=== PATIENT | female | born 1955 | race Caucasian/White ===

== ENCOUNTER → 2018-09-02 | Outpatient (CLI) | payer BC ==
--- NOTE | 2018-09-02 09:19 | MM ---
Reason for exam: additional evaluation requested from prior study. Last mammogram was performed 3 years and 2 months ago. History: Patient is postmenopausal. Family history of breast cancer in maternal cousin at age 40. Benign ultrasound-guided core biopsy of the left breast, June 23, 2003. 2 benign cyst aspirations of the left breast. Physical Findings: Nurse did not find any significant physical abnormalities on exam. MG Diagnostic Mammo w CAD KELLY Bilateral CC and MLO view(s) were taken. Prior study comparison: June 27, 2015, bilateral MG 3d diag mammo w/cad KELLY. December 22, 2014, left breast MG diagnostic mammo LT w CAD. The breast tissue is heterogeneously dense. This may lower the sensitivity of mammography. Benign calcifications in the right breast. These results were verbally communicated with the patient and result sheet given to the patient on 09/02/18. ASSESSMENT: Benign, BI-RAD 2 RECOMMENDATION: Routine screening mammogram of both breasts in 1 year.
== END | disposition home or self-care (01) ==
LOC: RADMAMWWP 08:07
PROVIDERS: ATTEND Internal Medicine
DX: N63.20 Unspecified lump in the left breast, unspecified quadrant (principal)
CPT/HCPCS: 77066

== ENCOUNTER → 2018-10-27 | Outpatient (CLI) | payer BC ==
[2018-10-27 22:01] LABS: Hemoglobin A1C 7.3 % (4.0-6.0)
== END | disposition home or self-care (01) ==
LOC: LABWHC1 11:21
PROVIDERS: ATTEND Internal Medicine
DX: E11.9 Type 2 diabetes mellitus without complications (principal)
CPT/HCPCS: 36415; 82947; 83036

== ENCOUNTER → 2021-01-25 | Outpatient (CLI) | payer BC ==
[2021-01-25 16:12] LABS: HCT 39.1 % (34.0-46.0); HGB 13.2 gm/dL (11.4-16.0); MCH 28.2 pg (25.0-35.0); MCHC 33.7 g/dL (31.0-37.0); MCV 83.6 fL (80.0-100.0); Mean Platelet Volume 7.3; Platelet Count 307 k/uL (150-450); RBC 4.68 m/uL (3.80-5.40); RDW 13.9 % (11.5-15.5); WBC 7.7 k/uL (3.8-10.6)
[2021-01-25 16:20] LABS: Potassium 4.1 mmol/L (3.5-5.1)
== END | disposition home or self-care (01) ==
LOC: LABPAT 15:47
PROVIDERS: ATTEND Surgery
DX: Z01.818 Encounter for other preprocedural examination (principal); C18.9 Malignant neoplasm of colon, unspecified; R94.31 Abnormal electrocardiogram [ECG] [EKG]
CPT/HCPCS: 36415; 80051; 85027; 86850; 86900; 86901; 93005

== ENCOUNTER 2021-01-31 08:21 | Inpatient (IN) | payer BC ==
[2021-01-29 11:58] VITALS: BMI 34.7
[~2021-01-31 08:21] MED LIST: ACETAMINOPHEN TAB 500 MG TAB PO PRN; DEXAMETHASONE SOD PHOSPHATE 4 MG/ML 1 ML VIAL IV ONE; HEPARIN SODIUM,PORCINE/PF 5,000 UNIT/0.5 ML SYRINGE SQ PRN; HYDROmorphone 0.5 MG/0.5 ML SYRINGE IVP PRN; LIDOCAINE 1% (10MG/ML) FOR IV START INTRADERMA PRN; ONDANSETRON 4 MG/2 ML VIAL IVP ONE; SCOPOLAMINE 1.5MG/72HR PATCH TRANSDERM ONE; metroNIDAZOLE-NS PMX 500 MG in SALINE 1 100ML.BAG IVPB PRN
--- NOTE | 2021-01-31 09:06 | P.GSHP ---
History of Present Illness H&P Date: 01/31/21 Chief Complaint: Colon cancer This 65-year-old female who was recently diagnosed with synchronous colon cancer. Patient is a cancer of the right colon and left colon. She presents today for subtotal colectomy. Patient aware the risks of surgery including bleeding, wound infection and possible colostomy Past Medical History Past Medical History: Cancer, Diabetes Mellitus, Eye Disorder, Hypertension Additional Past Medical History / Comment(s): colon cancer. glaucoma History of Any Multi-Drug Resistant Organisms: None Reported Past Surgical History: Cholecystectomy Smoking Status: Never smoker - Past Family History Father Family Medical History: Cancer Additional Family Medical History / Comment(s): prostate cancer x. colon cancer Medications and Allergies Home Medications Medication Instructions Recorded Confirmed Type Bisoprolol/Hydrochlorothiazide 1 tab PO DAILY 01/29/21 01/31/21 History [Bisoprolol/Hydrochlorothiazide 2.5-6.25 mg] Dorzolamide/Timolol/Pf 1 drop BOTH EYES BID 01/29/21 01/31/21 History [Dorzolamide 2%-Timolol 0.5%] metFORMIN HCL [Glucophage] 1,000 mg PO BID 01/29/21 01/31/21 History Allergies Allergy/AdvReac Type Severity Reaction Status Date / Time No Known Allergies Allergy Verified 01/31/21 08:55 Surgical - Exam Vital Signs Temp Pulse Resp BP Pulse Ox 97.1 F L 82 16 172/84 97 01/31/21 08:54 01/31/21 08:54 01/31/21 08:54 01/31/21 08:54 01/31/21 08:54 - General well developed, well nourished, no distress - Eyes PERRL - ENT normal pinna - Neck no masses - Respiratory normal expansion - Cardiovascular Rhythm: regular - Abdomen Abdomen: soft, non tender Assessment and Plan Assessment: History of synchronous colon cancer. Patient will undergo subtotal colectomy today.
[2021-01-31 09:27] LABS: Glucose,Whole Blood 292 mg/dL (75-99)
[2021-01-31] MEDS: LACTATED RINGERS 1,000 ML IV SCH (09:31)
[2021-01-31] MEDS ORDERED: ALVIMOPAN 12 MG CAPSULE PO ONE (09:32)
[2021-01-31] MEDS ORDERED: INSULIN ASPART (NovoLOG) 100 UNIT/ML VIAL SQ ONE (09:36)
[2021-01-31] MEDS ORDERED: MIDAZOLAM 2 MG/2 ML VIAL IVP ONE (09:46)
[2021-01-31] MEDS ORDERED: NALOXONE 0.4 MG/ML 1 ML VIAL IV PRN (10:00)
--- NOTE | 2021-01-31 10:03 | P.ANPRN ---
Procedure Note - Anesthesia - Epidural/Spinal Epidural Time Out Performed: Yes Date of Procedure: 01/31/21 Procedure Start Time: 09:45 Procedure Stop Time: 10:01 Location of Patient: PreOp Indication: Acute Post-Operative Pain Sedation Type: Sedate with meaningful contact maintained Preparation: Sterile Dressing Position: Sitting Catheter: Indwelling Needle Guage: 18 Injectate: Test Dose Lidocaine1.5% w/1:200,000 epi (3cc without response) Blood Aspirated: No Pain Paresthesia on Injection Noted: No Events: Uneventful and Well Tolerated
[2021-01-31] MEDS ORDERED: HYDROmorphone (PF) 1 MG/ML ONE (10:22)
[2021-01-31] MEDS ORDERED: MIDAZOLAM 2 MG/2 ML VIAL ONE (10:22)
[2021-01-31] MEDS ORDERED: PHENYLEPHRINE-0.9% NACL SYG 1,000 MCG/10 ML SYRINGE ONE (10:22)
[2021-01-31] MEDS ORDERED: SUCCINYLCHOLINE CHLORIDE 100 MG/5 ML SYR IV ONE (10:22)
[2021-01-31] MEDS ORDERED: VECURONIUM 10 MG VIAL IV ONE (10:22)
[2021-01-31] MEDS ORDERED: LIDOCAINE 1% INJ 10MG/ML (20 ML MDV) ONE (10:22)
[2021-01-31] MEDS ORDERED: PROPOFOL 10 MG/ML 20 ML VIAL IV ONE (10:22)
[2021-01-31] MEDS ORDERED: fentaNYL (PF) 50 MCG/ML 2 ML AMP ONE (10:22)
[2021-01-31] MEDS ORDERED: NEOSTIGMINE 1 MG/ML 10 ML VIAL ONE (10:22)
[2021-01-31] MEDS ORDERED: GLYCOPYRROLATE 0.2 MG/ML 2 ML VIAL ONE (10:22)
[2021-01-31] MEDS ORDERED: LACTATED RINGERS 1,000 ML IV ONE (11:37)
[2021-01-31] MEDS ORDERED: METOCLOPRAMIDE 5 MG/ML 2 ML VIAL IVP PRN (12:34)
--- NOTE | 2021-01-31 12:34 | P.OP ---
Date of Procedure: 01/31/21 Preoperative Diagnosis: Synchronous colon cancer of right and left colon Postoperative Diagnosis: Synchronous colon cancer of right and left colon Procedure(s) Performed: Subtotal colectomy Partial omentectomy Anesthesia: CARYN Surgeon: Mac Kohler Estimated Blood Loss (ml): 150 Pathology: none sent (colon) Condition: stable Disposition: PACU Description of Procedure: Patient's placed the operative table in supine position. She received a general injury to position. Her abdomen was prepped and draped usual sterile fashion. A midline skin incision was made. The Bookwalter tract with wound. There were adhesions in the cavity. The adhesions were quite significant. Approximate 35 minutes operative time used to lyse adhesions. At this point the terminal ileum was dissected free and then transected with a GI stapler. The right colon was mobilized by dividing the white line of Toldt's. And then the hepatic flexure was mobilized and then the splenic flexure was mobilized and then the left colon was mobilized. The area of the rectosigmoid was then transected with the MAIKEL stapler. And then using the Enseal device the mesentery the bowel was divided. The specimen was then sent to pathology. This point the abdomen was irrigated. There is no bleeding seen. A [id number] functional end-to-end staple S was then created between the terminal ileum and the rectosigmoid area. This was grade using the MAIKEL and TA stapler. 30 just sutures using a crotch stitch. The abdomen was irrigated is no bleeding seen. The fascia closed with looped #1 PDS suture. Skin was closed cheyanne. The patient tolerated the procedure well and sent to recovery room in stable condition.
[2021-01-31] MEDS: ROPIVACAINE 250 MG, HYDROMORPHONE (PF) 5 MG in SODIUM CHLORIDE 0.9% 200 ML EPIDURAL PRN ×2 (12:35→13:16)
[2021-01-31 12:53] LABS: Glucose,Whole Blood 244 mg/dL (75-99)
[2021-01-31] MEDS ORDERED: D5-0.45% NACL WITH KCL 20MEQ/L 1,000 ML IV SCH (13:30)
[2021-01-31] MEDS: metFORMIN 500 MG TAB PO SCH (17:00)
[2021-01-31] MEDS: HEPARIN SODIUM,PORCINE/PF 5,000 UNIT/0.5 ML SYRINGE SQ SCH ×2 (17:08→19:54)
[2021-01-31] MEDS: SODIUM CHLORIDE 0.9% 1,000 ML IV SCH (18:39)
[2021-01-31 19:44] LABS: Glucose,Whole Blood 304 mg/dL (75-99)
[2021-01-31] MEDS: INSULIN ASPART (NovoLOG) 100 UNIT/ML VIAL SQ SCH (19:54)
[2021-01-31] MEDS: DORZOLAMIDE-TIMOLOL 2.23%/0.68 10ML BTL BOTH EYES SCH (19:55)
--- NOTE | 2021-01-31 23:25 | CONS ---
CONSULTATION REASON FOR CONSULTATION: Advice regarding diabetes and other medical issues, requested by Dr. Kohler. HISTORY OF PRESENT ILLNESS: This 65-year-old woman with a past medical history of diabetes mellitus, history of hypertension, history of and glaucoma, being followed by Dr. Catherine in the outpatient setting, underwent subtotal colectomy and partial omentectomy by Dr. Kohler for synchronous colon cancer of the right and left colon. The patient tolerated the procedure well. There is no history of any fever, rigors or chills. No history of headache, loss of consciousness, seizures at this time. PAST MEDICAL HISTORY: History of diabetes mellitus, hypertension, history of colon cancer. MEDICATIONS: Glucophage, bisopryl, hydrochlorothiazide. Doses are reviewed. ALLERGIES: NONE. FAMILY HISTORY: History of prostate cancer and colon cancer in the family. SOCIAL HISTORY: No history of smoking. Occasional alcohol intake. REVIEW OF SYSTEMS: ENT: No diminished hearing. No diminished vision. CARDIOVASCULAR SYSTEM: No angina, palpitations. RESPIRATORY SYSTEM: No cough, hemoptysis, GI: As mentioned earlier. : No dysuria. NERVOUS SYSTEM: No numbness, weakness. ALLERGY/IMMUNOLOGY: No asthma or hay fever. MUSCULOSKELETAL: As mentioned earlier. HEMATOLOGY/ONCOLOGY: As mentioned earlier. ENDOCRINE: As mentioned earlier. CONSTITUTIONAL: As mentioned earlier. DERMATOLOGY: Negative. RHEUMATOLOGY: Negative. PSYCHIATRY: As mentioned earlier. PHYSICAL EXAMINATION: Patient alert and times 3. Pulse is 61, blood pressure 136/66, respirations 16, temperature 96.9, pulse ox 98% on 2 L. HEENT: Conjunctivae normal. NECK: No jugular venous distention. CARDIOVASCULAR: S1, S2 muffled. RESPIRATION: Breath sounds diminished at the bases. A few rhonchi. No crackles. ABDOMEN: Soft. Status post surgery. LEGS: No edema. No swelling. NERVOUS SYSTEM: Higher functions as mentioned earlier. Moves all 4 limbs. No focal motor or sensory deficit. LYMPHATICS: No lymph node palpable in neck, axillae or groin. SKIN: No ulcer, rash, bleeding. JOINTS: No active deforming arthropathy. LABS: Glucose 292 and 244. The preoperative labs are seen. Normal CBC. Chemistries noted. ASSESSMENT: 1. Status post subtotal colectomy and partial omentectomy for synchronous colon cancer of the right and left colon. 2. Diabetes mellitus, type 2. 3. Glaucoma. 4. Hypertension. 5. History of cholecystectomy. 6. Obesity with body mass index of 34.4. 7. FULL CODE. RECOMMENDATIONS AND DISCUSSION: In this 65-year-old woman who presented with multiple complex medical issues, at this time I recommend to continue the current management, continue symptomatic treatment. Otherwise, change the IV fluids to 0.9. Accu-Cheks before meals and at bedtime. Resume the home medications. DVT prophylaxis. Proton pump inhibitors. Will follow the patient closely. Patient may be asked to follow up with Dr. Catherine closely after discharge. Thank you, Dr. Kohler, for letting us participate in the care of this patient. MMODL / IJN: [id number] / LUCINA
[2021-02-01] MEDS: LACTATED RINGERS 1,000 ML IV SCH (05:13)
--- NOTE | 2021-02-01 06:21 | P.PN ---
Progress Note - Text Progress Note Date: 02/01/21 65-year-old female status post a subtotal colectomy postop day #1 epidural catheter day #2. Patient has no complaints. She has a Jeffrey catheter in place. Current solution is running at 6 mL an hour. She did have some right thigh numbness yesterday that has subsided. No lower extremity weakness. Back and epidural catheter look appropriate clean dry and intact. VAS ranges from a 0-6 out of 10 severity depending on activity. Plan: Continue epidural catheter at current settings, endorse ambulation, okay to remove Jeffrey catheter. Patient is on subcu heparin 5000 units every 8 hours please contact anesthesia before removing epidural catheter.
[2021-02-01 07:10] LABS: Glucose,Whole Blood 218 mg/dL (75-99)
[2021-02-01] MEDS: INSULIN ASPART (NovoLOG) 100 UNIT/ML VIAL SQ SCH ×4 (07:12→21:22)
[2021-02-01] MEDS: HEPARIN SODIUM,PORCINE/PF 5,000 UNIT/0.5 ML SYRINGE SQ SCH ×3 (07:13→21:22)
[2021-02-01] MEDS: metFORMIN 500 MG TAB PO SCH ×2 (07:13→17:17)
[2021-02-01 07:44] LABS: Basophils # (A) 0.1 k/uL (0-0.2); Basophils % (A) 1 %; Eosinophils % (A) 0 %; HCT 35.3 % (34.0-46.0); Lymphocytes # (A) 1.8 k/uL (1.0-4.8); Lymphocytes % (A) 20 %; MCH 28.9 pg (25.0-35.0); MCHC 34.1 g/dL (31.0-37.0); MCV 84.8 fL (80.0-100.0); Mean Platelet Volume 7.7; Monocytes # (A) 0.8 k/uL (0-1.0); Monocytes % (A) 9 %; Neutrophils # (A) 6.4 k/uL (1.3-7.7); Neutrophils % (A) 69 %; Platelet Count 273 k/uL (150-450); RBC 4.16 m/uL (3.80-5.40); RDW 14.2 % (11.5-15.5); WBC 9.2 k/uL (3.8-10.6)
[2021-02-01 07:55] LABS: African American GFR (CKD) >90 (>60 ml/min/1.73 sqM); Anion Gap 7 mmol/L; Blood Urea Nitrogen 7 mg/dL (7-17); Calcium 8.1 mg/dL (8.4-10.2); Carbon Dioxide 26 mmol/L (22-30); Chloride 101 mmol/L (98-107); Glucose 208 mg/dL (74-99); Non-African American GFR(CKD) >90 (>60 ml/min/1.73 sqM); Potassium 4.1 mmol/L (3.5-5.1); Sodium 134 mmol/L (137-145)
[2021-02-01] MEDS: DORZOLAMIDE-TIMOLOL 2.23%/0.68 10ML BTL BOTH EYES SCH ×2 (08:26→21:24)
[2021-02-01] MEDS: BISOPROLOL-HCTZ 2.5-6.25 MG 1 EACH TAB PO SCH (08:26)
[2021-02-01] MEDS: SODIUM CHLORIDE 0.9% 1,000 ML IV SCH ×2 (08:54→16:48)
[2021-02-01 11:42] LABS: Glucose,Whole Blood 239 mg/dL (75-99)
--- NOTE | 2021-02-01 13:56 | P.PN ---
Subjective Progress Note Date: 02/01/21 CHIEF COMPLAINT: Synchronous colon cancer of right and left colon HISTORY OF PRESENT ILLNESS: Patient is status post Subtotal colectomy and Partial omentectomy. Postop day #1. She has epidural in place. Her pain is controlled. She denies any nausea or vomiting. No flatus or BM. Afebrile. WBC is 9.2 hemoglobin is 12 PHYSICAL EXAM: VITAL SIGNS: Reviewed. GENERAL: Well-developed in no acute distress. HEENT: No sclera icterus. Extraocular movements grossly intact. Moist buccal mucosa. Head is atraumatic, normocephalic. ABDOMEN: Soft. Nondistended. Incisional dressing clean dry and intact NEUROLOGIC: Alert and oriented. Cranial nerves II through XII grossly intact. ASSESSMENT: 1. Synchronous colon cancer of right and left colon status post Subtotal colectomy and Partial omentectomy PLAN: -Continue epidural for pain control -Continue Jeffrey catheter -Continue clear liquid diet -Encouraged patient to increase activity and ambulate -Encouraged patient to use incentive spirometer -DVT prophylaxis subcu heparin and GI prophylaxis protonix Physician Film Crew Member note has been reviewed by physician. Signing provider agrees with the documented findings, assessment, and plan of care. Objective - Vital Signs Vital signs: Vital Signs Temp 98.4 F 02/01/21 07:32 Pulse 92 02/01/21 07:32 Resp 18 02/01/21 07:32 BP 112/74 02/01/21 07:32 Pulse Ox 93 L 02/01/21 07:32 Intake & Output 01/31/21 02/01/21 02/01/21 18:59 06:59 18:59 Intake Total 1854.8 1500 Output Total 390 400 Balance 1464.8 1500 -400 Weight 91 kg Intake: IV 1854.8 Intake, IV Titration 1500 Amount D5-0.45% NaCl with KCl 1500 20Meq/l 1,000 ml @ 125 mls/hr IV .Q8H [facility] Rx#: [id number] Output: Urine 240 400 Estimated Blood Loss 150 Other: Voiding Method Indwelling Catheter Indwelling Catheter - Labs CBC & Chem 7: 02/01/21 06:51 02/01/21 06:51 Labs: Abnormal Lab Results - Last 24 Hours (Table) 01/31/21 02/01/21 02/01/21 Range/Units 19:42 06:51 07:09 Sodium 134 L (137-145) mmol/L Glucose 208 H (74-99) mg/dL POC Glucose (mg/dL) 304 H 218 H (75-99) mg/dL Calcium 8.1 L (8.4-10.2) mg/dL 02/01/21 Range/Units 11:41 Sodium (137-145) mmol/L Glucose (74-99) mg/dL POC Glucose (mg/dL) 239 H (75-99) mg/dL Calcium (8.4-10.2) mg/dL
--- NOTE | 2021-02-01 14:03 | PN ---
PROGRESS NOTE DATE OF SERVICE: 02/01/2021 This 65-year-old woman was admitted after subtotal colectomy and partial omentectomy for synchronized colon cancer is improving significantly. No chest pain. No palpitations. No fever. PHYSICAL EXAMINATION: Alert and oriented times two. Pulse 92, blood pressure 112/74, respiration 18, temperature 98.2, pulse ox 98% on 2 L. HEENT: Conjunctivae normal. Neck: No JVD. Cardiovascular: S1, S2 muffled. Respiration: Breath sounds diminished in the bases. A few rhonchi. No crackles. Abdomen: Soft, status post surgery. Nervous system: No focal deficits. LABS: Accu-Cheks 289, 239. Calcium is 8.1. ASSESSMENT: 1. Status post subtotal colectomy for partial omentectomy for synchronized colon cancer of the right and left colon. 2. Diabetes mellitus type 2. 3. Mild hyponatremia. 4. Glaucoma. 5. Hypertension. 6. History of cholecystectomy. 7. Obesity with body mass of 34.4. 8. FULL CODE. RECOMMENDATIONS AND DISCUSSION: I recommend to continue current medications, management and symptomatic treatment. The patient's NG tube has been removed. The patient is currently on clear liquid diet. I recommend to continue the metformin at this time and NovoLog scale also. I would recommend hemoglobin A1c and continue to monitor. Further recommendations to follow. MMODL / IJN: [id number] /
[2021-02-01] MEDS: PANTOPRAZOLE 40 MG TABLET PO SCH (16:24)
[2021-02-01 16:33] LABS: Glucose,Whole Blood 162 mg/dL (75-99)
[2021-02-01] MEDS: ROPIVACAINE 250 MG, HYDROMORPHONE (PF) 5 MG in SODIUM CHLORIDE 0.9% 200 ML EPIDURAL PRN (16:42)
[2021-02-01 20:37] LABS: Glucose,Whole Blood 167 mg/dL (75-99)
[2021-02-01 23:16] LABS: Hemoglobin A1C 6.7 % (4.0-6.0)
[2021-02-02] MEDS: LACTATED RINGERS 1,000 ML IV SCH (05:34)
[2021-02-02 06:50] LABS: Glucose,Whole Blood 208 mg/dL (75-99)
--- NOTE | 2021-02-02 07:36 | P.PN ---
Progress Note - Text 02/02/21 702am 65-year-old female status post subtotal colectomy by Dr. Reyes. Postop day #2 with epidural solution running at 5 mL an hour with a VAS of 4. Dressing clean dry and intact. No complains and motor or sensory deficits. Patient was able to walk to the bathroom yesterday. Plan to continue epidural infusion and DC the catheter in the morning. Hold the morning dose of subcu heparin
[2021-02-02] MEDS: PANTOPRAZOLE 40 MG TABLET PO SCH (09:28)
[2021-02-02] MEDS: metFORMIN 500 MG TAB PO SCH ×2 (09:28→17:02)
[2021-02-02] MEDS: DORZOLAMIDE-TIMOLOL 2.23%/0.68 10ML BTL BOTH EYES SCH ×2 (09:28→20:57)
[2021-02-02] MEDS: HEPARIN SODIUM,PORCINE/PF 5,000 UNIT/0.5 ML SYRINGE SQ SCH ×2 (09:29→17:02)
[2021-02-02] MEDS: BISOPROLOL-HCTZ 2.5-6.25 MG 1 EACH TAB PO SCH (09:29)
[2021-02-02] MEDS: INSULIN ASPART (NovoLOG) 100 UNIT/ML VIAL SQ SCH ×4 (09:29→20:49)
[2021-02-02] MEDS: SODIUM CHLORIDE 0.9% 1,000 ML IV SCH (09:37)
[2021-02-02 11:39] LABS: Glucose,Whole Blood 247 mg/dL (75-99)
[2021-02-02] MEDS: ONDANSETRON 4 MG/2 ML VIAL IVP PRN ×2 (12:02→23:12)
--- NOTE | 2021-02-02 13:24 | PN ---
PROGRESS NOTE DATE OF SERVICE: 02/02/2021 This 65-year-old woman was admitted after subtotal colectomy is being closely monitored. No chest pain. No palpitations. No fever. EXAM: Alert and oriented x3. Pulse 101. Blood pressure 130/77, respirations 16, temperature 97.8. Pulse ox is 97% on 2 L. HEENT: Conjunctivae normal. Neck: No JVD. Cardiovascular: S1, S2. Respirations: Breath sounds diminished in the bases. A few scattered rhonchi. Abdomen: Soft. Nervous system: No focal deficits. LABS: Accu-Cheks 247. ASSESSMENT: 1. Status post subtotal colectomy for partial omentectomy for synchronized colon cancer with the right and left colon. 2. Diabetes mellitus type 2. 3. Mild hyponatremia. 4. Glaucoma. 5. Hypertension. 6. History of cholecystectomy. 7. Obesity with body mass of 34.6. 8. FULL CODE. RECOMMENDATIONS AND DISCUSSION: I recommend to continue current medications, symptomatic treatment. Blood sugars are slightly elevated. Currently patient is on clear liquids. The patient is taking metformin at home. I would recommend a small dose of insulin for better diabetic control at night. Continue to monitor. Further recommendations to follow. MMODL / IJN: [id number] /
--- NOTE | 2021-02-02 13:36 | P.PN ---
Subjective Progress Note Date: 02/02/21 CHIEF COMPLAINT: Synchronous colon cancer of right and left colon HISTORY OF PRESENT ILLNESS: Patient is status post Subtotal colectomy and Partial omentectomy. Postop day #2. She has epidural in place. Her pain is controlled. She denies any nausea or vomiting. No flatus or BM. She has ambulated in her room. Afebrile. No new labs. We'll close to 47 PHYSICAL EXAM: VITAL SIGNS: Reviewed. GENERAL: Well-developed in no acute distress. HEENT: No sclera icterus. Extraocular movements grossly intact. Moist buccal mucosa. Head is atraumatic, normocephalic. ABDOMEN: Soft. Nondistended. Incisional dressing clean dry and intact NEUROLOGIC: Alert and oriented. Cranial nerves II through XII grossly intact. ASSESSMENT: 1. Synchronous colon cancer of right and left colon status post Subtotal colectomy and Partial omentectomy PLAN: -Continue epidural for pain control -Continue Jeffrey catheter -Continue clear liquid diet -Encouraged patient to increase activity and ambulate -Encouraged patient to use incentive spirometer -Blood sugar management per medical service -DVT prophylaxis subcu heparin and GI prophylaxis protonix Physician Tobacco Packing Machine Operator note has been reviewed by physician. Signing provider agrees with the documented findings, assessment, and plan of care. Objective - Vital Signs Vital signs: Vital Signs Temp 97.8 F 02/02/21 09:27 Pulse 101 H 02/02/21 09:27 Resp 16 02/02/21 09:30 BP 133/77 02/02/21 09:27 Pulse Ox 96 02/02/21 09:27 Intake & Output 02/01/21 02/02/21 02/02/21 18:59 06:59 18:59 Intake Total 1355 200 Output Total 800 400 Balance -800 955 200 Intake: Intake, IV Titration 875 Amount Sodium Chloride 0.9% 1, 875 000 ml @ 75 mls/hr IV . [id number] [facility] Rx#:[id number] Oral 480 200 Output: Urine 800 400 Other: Voiding Method Indwelling Catheter Indwelling Catheter Indwelling Catheter - Labs CBC & Chem 7: 02/01/21 06:51 02/01/21 06:51 Labs: Abnormal Lab Results - Last 24 Hours (Table) 02/01/21 02/01/21 02/01/21 Range/Units 06:51 16:32 20:35 POC Glucose (mg/dL) 162 H 167 H (75-99) mg/dL Hemoglobin A1c 6.7 H (4.0-6.0) % 02/02/21 02/02/21 Range/Units 06:48 11:37 POC Glucose (mg/dL) 208 H 247 H (75-99) mg/dL Hemoglobin A1c (4.0-6.0) %
[2021-02-02] MEDS: INSULIN DETEMIR (LEVEMIR) 100 UNIT/ML SYR SQ SCH (14:31)
[2021-02-02 16:27] LABS: Glucose,Whole Blood 184 mg/dL (75-99)
[2021-02-02 20:01] LABS: Glucose,Whole Blood 144 mg/dL (75-99)
[2021-02-03] MEDS: HEPARIN SODIUM,PORCINE/PF 5,000 UNIT/0.5 ML SYRINGE SQ SCH ×3 (00:02→18:10)
[2021-02-03] MEDS: SODIUM CHLORIDE 0.9% 1,000 ML IV SCH ×2 (00:56→14:27)
[2021-02-03] MEDS: LACTATED RINGERS 1,000 ML IV SCH (05:27)
[2021-02-03 06:52] LABS: Glucose,Whole Blood 153 mg/dL (75-99)
[2021-02-03] MEDS: ONDANSETRON 4 MG/2 ML VIAL IVP PRN (07:35)
[2021-02-03] MEDS: metFORMIN 500 MG TAB PO SCH ×2 (08:06→17:34)
[2021-02-03] MEDS: INSULIN DETEMIR (LEVEMIR) 100 UNIT/ML SYR SQ SCH (08:06)
[2021-02-03] MEDS: PANTOPRAZOLE 40 MG TABLET PO SCH (08:06)
[2021-02-03] MEDS: INSULIN ASPART (NovoLOG) 100 UNIT/ML VIAL SQ SCH ×4 (08:06→21:00)
[2021-02-03] MEDS: BISOPROLOL-HCTZ 2.5-6.25 MG 1 EACH TAB PO SCH (08:07)
[2021-02-03] MEDS: DORZOLAMIDE-TIMOLOL 2.23%/0.68 10ML BTL BOTH EYES SCH ×2 (08:07→20:45)
--- NOTE | 2021-02-03 08:35 | P.PN ---
Progress Note - Text Progress Note Date: 02/03/21 Patient with some discomfort when moving. Epidural turned off during the night due to infusion running out. Anesthesia not notified at that time. Pt states she is comfortable enough to not have the epidural restarted and she would like to walk around. Denies headache. Denies leg weakness. Epidural site clean and dry. The epidural was d/c'd without difficulty. Tip intact. A/P POD#3 s/p open colectomy. - multimodal analgesia - around the clock tylenol and NSAID (if renal function permits) - Dilaudid IV until taking PO
[2021-02-03] MEDS ORDERED: HYDROcodone/APAP 5-325MG 1 EACH TAB PO PRN (10:00)
[2021-02-03 11:28] LABS: Glucose,Whole Blood 166 mg/dL (75-99)
[2021-02-03] MEDS: HYDROmorphone 1 MG/ML 1 ML SYRINGE IVP PRN ×2 (12:34→21:00)
[2021-02-03 12:37] LABS: Basophils % (A) 0 %; Eosinophils # (A) 0.2 k/uL (0-0.7); Eosinophils % (A) 3 %; HCT 31.1 % (34.0-46.0); HGB 10.5 gm/dL (11.4-16.0); Lymphocytes % (A) 12 %; MCH 28.4 pg (25.0-35.0); MCHC 33.9 g/dL (31.0-37.0); MCV 83.8 fL (80.0-100.0); Mean Platelet Volume 7.4; Monocytes # (A) 0.4 k/uL (0-1.0); Monocytes % (A) 5 %; Neutrophils # (A) 6.9 k/uL (1.3-7.7); Neutrophils % (A) 79 %; Platelet Count 261 k/uL (150-450); RBC 3.72 m/uL (3.80-5.40); RDW 14.6 % (11.5-15.5); WBC 8.7 k/uL (3.8-10.6)
[2021-02-03 12:45] LABS: ALT 17 U/L (4-34); AST 26 U/L (14-36); African American GFR (CKD) >90 (>60 ml/min/1.73 sqM); Albumin 2.6 g/dL (3.5-5.0); Albumin/Globulin Ratio 1.1; Alkaline Phosphatase 48 U/L (38-126); Anion Gap 10 mmol/L; Blood Urea Nitrogen 4 mg/dL (7-17); Calcium 8.2 mg/dL (8.4-10.2); Carbon Dioxide 25 mmol/L (22-30); Chloride 98 mmol/L (98-107); Globulin 2.4 g/dL; Glucose 167 mg/dL (74-99); Non-African American GFR(CKD) >90 (>60 ml/min/1.73 sqM); Potassium 3.4 mmol/L (3.5-5.1); Sodium 133 mmol/L (137-145); Total Bilirubin 0.7 mg/dL (0.2-1.3)
--- NOTE | 2021-02-03 13:14 | XR ---
EXAMINATION TYPE: XR abdomen 2V DATE OF EXAM: 02/03/2021 COMPARISON: NONE HISTORY: 65 years Female. STUDY INDICATION GIVEN: abdominal pain . TECHNIQUE: Upright and supine abdominal radiographs IMPRESSION: Questionable small amount of free air seen in the left upper abdomen and midline surgical cheyanne, co rrelation with history of recent surgery recommended. The need for a IV and oral contrast enhanced CT of the abdomen and pelvis should be determined on clinical basis Diffuse bowel distention with mild dilatation, ileus versus intestinal obstruction. Cholecystectomy clips noted. No abnormal calcifications seen. No evidence for organomegaly. Questionable small amount of ascites in the abdomen. No acute osseous abnormality. Minimal subsegmental bibasilar atelectasis.
--- NOTE | 2021-02-03 13:57 | P.PN ---
Subjective Progress Note Date: 02/03/21 CHIEF COMPLAINT: Colon cancer HISTORY OF PRESENT ILLNESS: The patient is a 65-year-old female presents with synchronous colon cancer status post subtotal colectomy. Patient had emesis overnight. NGT present. Family at bedside. Patient reports having nausea since yesterday prior to placement of NG tube. No bowel movements or flatus. ROS: No reports of nausea and vomiting. No fevers or chills. No new chest pain. No productive sputum PHYSICAL EXAM: VITAL SIGNS: Reviewed CONSTITUTIONAL: Well developed and in no acute distress. EYES: Conjuctivae without sclera icterus. Extraocular movements grossly intact. HEAD, EARS, NOSE, THROAT: Moist buccal mucosa. Head is atraumatic, normocephali c. Hears conversational speech. No nasal drainage. NECK: No gross thyroidomegaly. No jugular venous distention. RESPIRATORY: Non-labored respirations and equal bilateral excursions. CARDIOVASCULAR: 2+ radial pulses. ABDOMEN: Dressing clean dry and intact. No peritonitis. MUSCULOSKELETAL: No gross deformity of the lower extremities noted. No clubbing. No cyanosis. SKIN: Good skin turgor. Well perfused. NEUROLOGIC: Cranial nerves II through XII grossly intact. No focal or lateralizing signs. PSYCH: Appropriate affect. Alert and oriented to person, place and time. CLINICAL LABS: Blood sugar glucose 144-247 ASSESSMENT: 1. Colon cancer 2. Nausea vomiting with ileus PLAN: 1. Recommend CBC and CMP 2. Nasogastric tube for ileus 3. Clinical course is declining, recommend abdominal x-ray for ileus and NG tube placement Objective - Vital Signs Vital signs: Vital Signs Temp 98.2 F 02/03/21 06:13 Pulse 92 02/03/21 06:13 Resp 15 02/03/21 06:13 BP 132/78 02/03/21 06:13 Pulse Ox 97 02/03/21 06:13 Intake & Output 02/02/21 02/03/21 02/03/21 18:59 06:59 18:59 Intake Total 680 183.5 Output Total 700 400 Balance -20 183.5 -400 Intake: Intake, IV Titration 183.5 Amount Ropivacaine 250 mg 183.5 Hydromorphone (Pf) 5 mg In Sodium Chloride 0.9% 200 ml @ Per Protocol EPIDURAL .Q0M PRN Rx#: [id number] Oral 680 Output: Urine 700 Emesis 400 Other: Voiding Method Indwelling Catheter Indwelling Catheter # Emeses 1 - Labs CBC & Chem 7: 02/03/21 12:13 02/03/21 12:13 Labs: Abnormal Lab Results - Last 24 Hours (Table) 02/02/21 02/02/21 02/03/21 Range/Units 16:22 20:00 06:50 POC Glucose (mg/dL) 184 H 144 H 153 H (75-99) mg/dL 02/03/21 Range/Units 11:26 POC Glucose (mg/dL) 166 H (75-99) mg/dL Assessment and Plan (1) Colon cancer Current Visit: Yes Status: Acute Code(s): C18.9 - MALIGNANT NEOPLASM OF COLON, UNSPECIFIED SNOMED Code(s): 600479861
[2021-02-03] MEDS: ALVIMOPAN 12 MG CAPSULE PO SCH ×2 (14:27→20:45)
[2021-02-03 16:33] LABS: Glucose,Whole Blood 150 mg/dL (75-99)
--- NOTE | 2021-02-03 20:25 | PN ---
PROGRESS NOTE DATE OF SERVICE: 02/03/2021 This 65-year-old woman was admitted after subtotal colectomy, is being closely monitored at this time. The patient had emesis overnight. A plain x-ray abdomen done showed diffuse bowel distention and possibly ileus. Surgery is following the patient closely. PAST MEDICAL HISTORY: Reviewed. REVIEW OF SYSTEMS: CARDIOVASCULAR No angina or palpitations. RESPIRATORY No cough, no hemoptysis. GI As mentioned earlier. No dysuria or hematuria. NERVOUS No numbness or weakness. CURRENT MEDICATIONS: Reviewed include Mchenry, ( ), Cosopt, Levemir, Glucophage, Zofran, Protonix. Doses reviewed. PHYSICAL EXAMINATION: Patient is alert, oriented x3. Pulse 87, blood pressure 120/77, respiration 18, temperature 98.2, pulse ox 94% on room air. HEENT: Conjunctivae normal. Oral mucosa moist. NECK: No jugular venous distention. No lymph node enlargement. CARDIOVASCULAR: S1, S2, muffled. No S3, no S4, RESPIRATORY: Diminished breath sounds at the bases. ABDOMEN: Soft, minimal distention, status post recent surgery. Bowel sounds diminished. LEGS: No edema, no swelling. NERVOUS SYSTEM: No focal deficits. LABS: WBC 8.2, hemoglobin 10.2, sodium 130, potassium 3.4. ASSESSMENT: 1. Status post subtotal colectomy for partial omentectomy for synchronous colon cancer with right and left colon. 2. Postoperative ileus. 3. Hypokalemia. 4. Hyponatremia. 5. Diabetes mellitus type 2. 6. Glaucoma. 7. Hypertension. 8. History of cholecystectomy. 9. Obesity, body mass of 34.6. 10.FULL CODE. RECOMMENDATIONS: Recommend to continue current management and symptomatic. Otherwise, at this time monitor electrolytes closely. Closely follow with Surgery. DVT prophylaxis. Further recommendations to follow. MMODL / IJN: [id number] /
[2021-02-03] MEDS: 0.9% NACL WITH KCL 20 MEQ/L 1,000 ML IV SCH (20:44)
[2021-02-03 20:47] LABS: Glucose,Whole Blood 145 mg/dL (75-99)
[2021-02-04] MEDS: HEPARIN SODIUM,PORCINE/PF 5,000 UNIT/0.5 ML SYRINGE SQ SCH ×3 (01:22→17:19)
[2021-02-04] MEDS: HYDROmorphone 1 MG/ML 1 ML SYRINGE IVP PRN ×2 (01:36→08:02)
[2021-02-04] MEDS: LACTATED RINGERS 1,000 ML IV SCH (05:24)
[2021-02-04 06:49] LABS: Glucose,Whole Blood 145 mg/dL (75-99)
[2021-02-04] MEDS: metFORMIN 500 MG TAB PO SCH ×2 (07:02→17:19)
[2021-02-04] MEDS: INSULIN DETEMIR (LEVEMIR) 100 UNIT/ML SYR SQ SCH (07:02)
[2021-02-04] MEDS: INSULIN ASPART (NovoLOG) 100 UNIT/ML VIAL SQ SCH ×4 (07:48→20:54)
[2021-02-04] MEDS: ALVIMOPAN 12 MG CAPSULE PO SCH (07:48)
[2021-02-04] MEDS: PANTOPRAZOLE 40 MG TABLET PO SCH (07:48)
[2021-02-04] MEDS: DORZOLAMIDE-TIMOLOL 2.23%/0.68 10ML BTL BOTH EYES SCH ×2 (07:49→20:29)
[2021-02-04] MEDS: BISOPROLOL-HCTZ 2.5-6.25 MG 1 EACH TAB PO SCH (07:52)
[2021-02-04] MEDS: ONDANSETRON 4 MG/2 ML VIAL IVP PRN (08:03)
[2021-02-04] MEDS: 0.9% NACL WITH KCL 20 MEQ/L 1,000 ML IV SCH ×2 (09:09→21:27)
[2021-02-04 11:19] LABS: HCT 34.3 % (37.2-46.3); MCH 26.8 pg (27.0-32.0); MCHC 32.1 g/dL (32.0-37.0); MCV 83.7 fL (80.0-97.0); Mean Platelet Volume 10.7 fL (9.5-12.2); Platelet Count 342 X 10*3/uL (140-440); WBC 6.88 X 10*3/uL (4.50-10.00)
[2021-02-04 11:23] LABS: Glucose,Whole Blood 154 mg/dL (75-99)
[2021-02-04 12:07] LABS: Basophils # (A) 0.02 X 10*3/uL (0.00-0.10); Basophils % (A) 0.3 %; Eosinophils # (A) 0.33 X 10*3/uL (0.04-0.35); Eosinophils % (A) 4.8 %; Lymphocytes # (A) 1.23 X 10*3/uL (0.90-5.00); Lymphocytes % (A) 17.9 %; Monocytes # (A) 0.99 X 10*3/uL (0.20-1.00); Monocytes % (A) 14.4 %; Neutrophils # (A) 4.26 X 10*3/uL (1.80-7.70); Neutrophils % (A) 61.9 %
[2021-02-04 12:44] LABS: African American GFR (CKD) 112.4 (60.0-200.0); Anion Gap 14.9 mmol/L (4.00-12.00); Carbon Dioxide 22.1 mmol/L (21.6-31.8); Potassium 3.5 mmol/L (3.5-5.5)
--- NOTE | 2021-02-04 14:05 | P.PN ---
Subjective Progress Note Date: 02/04/21 CHIEF COMPLAINT: Colon cancer HISTORY OF PRESENT ILLNESS: The patient is a 65-year-old female presents with synchronous colon cancer status post subtotal colectomy. She has NGT placement two nights ago. Now she is having bowel movements and passing flatus. ROS: No reports of nausea and vomiting. No fevers or chills. No new chest pain. No productive sputum PHYSICAL EXAM: VITAL SIGNS: Reviewed CONSTITUTIONAL: Well developed and in no acute distress. EYES: Conjuctivae without sclera icterus. Extraocular movements grossly intact. HEAD, EARS, NOSE, THROAT: Moist buccal mucosa. Head is atraumatic, normocephalic. Hears conversational speech. No nasal drainage. NG tube bilious RESPIRATORY: Non-labored respirations and equal bilateral excursions. CARDIOVASCULAR: 2+ radial pulses. ABDOMEN: Dressing intact. No peritonitis. MUSCULOSKELETAL: No gross deformity of the lower extremities noted. No clubbing. No cyanosis. SKIN: Good skin turgor. Well perfused. NEUROLOGIC: Cranial nerves II through XII grossly intact. No focal or lateralizing signs. PSYCH: Appropriate affect. Alert and oriented to person, place and time. CLINICAL LABS: Reviewed. WBC normal. ASSESSMENT: 1. Colon cancer 2. Nausea vomiting with ileus PLAN: 1. Ileus is resolving. 2. Re-start clear liquid diet. 3. Will remove NGT after tolerating diet 4. Alternative non-narcotic pain management reviewed. Objective - Vital Signs Vital signs: Vital Signs Temp 98.1 F 02/04/21 07:55 Pulse 100 02/04/21 07:55 Resp 18 02/04/21 07:55 BP 147/81 02/04/21 07:55 Pulse Ox 96 02/04/21 07:55 Intake & Output 02/03/21 02/04/21 02/04/21 18:59 06:59 18:59 Output Total 750 550 400 Balance -750 -550 -400 Output: Gastric Drainage 350 550 200 Urine 200 Emesis 400 Other: Voiding Method Indwelling Catheter Indwelling Catheter Toilet # Voids 2 1 # Bowel Movements 1 # Emeses 1 - Labs CBC & Chem 7: 02/04/21 07:23 02/04/21 07:23 Labs: Abnormal Lab Results - Last 24 Hours (Table) 02/03/21 02/03/21 02/04/21 Range/Units 16:23 20:45 06:47 Hgb (12.0-15.0) g/dL Hct (37.2-46.3) % MCH (27.0-32.0) pg Immature Gran # (0.00-0.04) X 10*3/uL Anion Gap (4.00-12.00) mmol/L BUN (9.0-27.0) mg/dL BUN/Creatinine Ratio (12.00-20.00) Ratio Glucose (70-110) mg/dL POC Glucose (mg/dL) 150 H 145 H 145 H (75-99) mg/dL Calcium (8.7-10.3) mg/dL 02/04/21 02/04/21 02/04/21 Range/Units 07:23 07:23 11:21 Hgb 11.0 L (12.0-15.0) g/dL Hct 34.3 L (37.2-46.3) % MCH 26.8 L (27.0-32.0) pg Immature Gran # 0.05 H (0.00-0.04) X 10*3/uL Anion Gap 14.90 H (4.00-12.00) mmol/L BUN 6.0 L (9.0-27.0) mg/dL BUN/Creatinine Ratio 10.00 L (12.00-20.00) Ratio Glucose 158 H (70-110) mg/dL POC Glucose (mg/dL) 154 H (75-99) mg/dL Calcium 8.0 L (8.7-10.3) mg/dL Assessment and Plan (1) Colon cancer Current Visit: Yes Status: Acute Code(s): C18.9 - MALIGNANT NEOPLASM OF COLON, UNSPECIFIED SNOMED Code(s): 233320527
[2021-02-04] MEDS: ACETAMINOPHEN IV (For NPO) 1,000 MG in EMPTY BAG 1 BAG IVPB SCH ×2 (15:10→20:28)
[2021-02-04 17:12] LABS: Glucose,Whole Blood 123 mg/dL (75-99)
[2021-02-04] MEDS: KETOROLAC 15 MG/ML 1 ML VIAL IVP SCH ×2 (17:19→23:41)
[2021-02-04 20:36] LABS: Glucose,Whole Blood 125 mg/dL (75-99)
[2021-02-05] MEDS: HEPARIN SODIUM,PORCINE/PF 5,000 UNIT/0.5 ML SYRINGE SQ SCH ×3 (02:24→18:04)
[2021-02-05] MEDS: ACETAMINOPHEN IV (For NPO) 1,000 MG in EMPTY BAG 1 BAG IVPB SCH ×2 (02:25→08:15)
[2021-02-05] MEDS: KETOROLAC 15 MG/ML 1 ML VIAL IVP SCH ×3 (05:19→18:03)
[2021-02-05 07:17] LABS: Glucose,Whole Blood 135 mg/dL (75-99)
[2021-02-05] MEDS: LACTATED RINGERS 1,000 ML IV SCH (08:01)
[2021-02-05] MEDS: INSULIN ASPART (NovoLOG) 100 UNIT/ML VIAL SQ SCH ×4 (08:02→21:37)
[2021-02-05] MEDS: metFORMIN 500 MG TAB PO SCH ×2 (08:15→16:24)
[2021-02-05] MEDS: PANTOPRAZOLE 40 MG TABLET PO SCH (08:16)
[2021-02-05] MEDS: INSULIN DETEMIR (LEVEMIR) 100 UNIT/ML SYR SQ SCH (08:16)
[2021-02-05] MEDS: BISOPROLOL-HCTZ 2.5-6.25 MG 1 EACH TAB PO SCH (08:16)
[2021-02-05] MEDS: DORZOLAMIDE-TIMOLOL 2.23%/0.68 10ML BTL BOTH EYES SCH ×2 (08:16→22:06)
[2021-02-05] MEDS: 0.9% NACL WITH KCL 20 MEQ/L 1,000 ML IV SCH ×2 (08:17→22:08)
[2021-02-05 11:28] LABS: Glucose,Whole Blood 131 mg/dL (75-99)
[2021-02-05 16:25] LABS: Glucose,Whole Blood 117 mg/dL (75-99)
--- NOTE | 2021-02-05 19:51 | P.PN ---
Subjective Progress Note Date: 02/05/21 CHIEF COMPLAINT: Colon cancer HISTORY OF PRESENT ILLNESS: The patient is a 65-year-old female presents with synchronous colon cancer status post subtotal colectomy. She is passing flatus and having bowel movements. Her NG tube has been clamped. She is tolerating clear liquids. "I just want a cracker to eat." She denies any further abdominal cramping. ROS: No reports of nausea and vomiting. No fevers or chills. No new chest pain. No productive sputum PHYSICAL EXAM: VITAL SIGNS: Reviewed CONSTITUTIONAL: Well developed and in no acute distress. EYES: Conjuctivae without sclera icterus. Extraocular movements grossly intact. HEAD, EARS, NOSE, THROAT: Moist buccal mucosa. Head is atraumatic, normocephalic. Hears conversational speech. No nasal drainage. NG tube bilious RESPIRATORY: Non-labored respirations and equal bilateral excursions. CARDIOVASCULAR: 2+ radial pulses. ABDOMEN: Dressing intact. No peritonitis. MUSCULOSKELETAL: No gross deformity of the lower extremities noted. No clubbing. No cyanosis. SKIN: Good skin turgor. Well perfused. NEUROLOGIC: Cranial nerves II through XII grossly intact. No focal or lateralizing signs. PSYCH: Appropriate affect. Alert and oriented to person, place and time. CLINICAL LABS: Reviewed. No new labs. ASSESSMENT: 1. Colon cancer PLAN: 1. I personally removed her NG tube 2. Advance diet to low fiber. Objective - Vital Signs Vital signs: Vital Signs Temp 97.8 F 02/05/21 08:34 Pulse 94 02/05/21 08:34 Resp 18 02/05/21 08:34 BP 137/85 02/05/21 08:34 Pulse Ox 97 02/05/21 08:34 Intake & Output 02/05/21 02/05/21 02/06/21 06:59 18:59 06:59 Output Total 750 Balance -750 Output: Gastric Drainage 750 Other: Voiding Method Toilet Toilet # Voids 2 - Labs CBC & Chem 7: 02/04/21 07:23 02/04/21 07:23 Labs: Abnormal Lab Results - Last 24 Hours (Table) 02/04/21 02/05/21 02/05/21 Range/Units 20:35 07:16 11:27 POC Glucose (mg/dL) 125 H 135 H 131 H (75-99) mg/dL 02/05/21 Range/Units 16:23 POC Glucose (mg/dL) 117 H (75-99) mg/dL Assessment and Plan (1) Colon cancer Current Visit: Yes Status: Acute Code(s): C18.9 - MALIGNANT NEOPLASM OF COLON, UNSPECIFIED SNOMED Code(s): 748798855
[2021-02-05 20:47] LABS: Glucose,Whole Blood 109 mg/dL (75-99)
--- NOTE | 2021-02-05 22:01 | P.PN ---
Subjective Progress Note Date: 02/04/21 Patient is a 65-year-old female was admitted to hospital after subtotal colectomy. X-ray abdomen was done yesterday showed diffuse bowel distention and possible ileus. Patient is currently NG tube. Patient is open to pass flatus and having small bowel meant. No complaints of nausea. No episodes of vomiting. No fever no chills. No cough or sputum production. Current medications reviewed. Objective - Vital Signs Vital signs: Vital Signs Temp 98.1 F 02/04/21 07:55 Pulse 100 02/04/21 07:55 Resp 18 02/04/21 07:55 BP 147/81 02/04/21 07:55 Pulse Ox 96 02/04/21 07:55 Intake & Output 02/03/21 02/04/21 02/04/21 18:59 06:59 18:59 Output Total 750 550 400 Balance -750 -550 -400 Output: Gastric Drainage 350 550 200 Urine 200 Emesis 400 Other: Voiding Method Indwelling Catheter Indwelling Catheter Toilet # Voids 2 1 # Bowel Movements 1 # Emeses 1 - Exam PHYSICAL EXAMINATION: Patient is lying in the bed comfortably, no acute distress, awake alert and oriented.. HEENT: Normocephalic. Neck is supple. Pupils reactive. Nostrils clear. Oral cavity is moist. Neck reveals no JVD, carotid bruits, or thyromegaly. CHEST EXAMINATION: Trachea is central. Symmetrical expansion. Lung lovelace clear to auscultation and percussion. CARDIAC: Normal S1, S2 with no gallops. No murmurs ABDOMEN: Soft. Abdomen distended. Bowel sounds are present. Nontender.Bowel sounds normal. No organomegaly. No abdominal bruits. Extremities: reveal no edema. No clubbing or cyanosis Neurologically awake, alert, oriented x3 with well-coordinated movements. No focal deficits noted Skin: No rash or skin lesions. Psychiatric: Coperative. Nonsuicidal Musculoskeletal: No joint swelling or deformity. Normal range of motion. - Labs CBC & Chem 7: 02/04/21 07:23 02/04/21 07:23 Labs: Abnormal Lab Results - Last 24 Hours (Table) 02/03/21 02/03/21 02/03/21 Range/Units 12:13 12:13 16:23 RBC 3.72 L (3.80-5.40) m/uL Hgb 10.5 L (11.4-16.0) gm/dL Hct 31.1 L (34.0-46.0) % MCH (27.0-32.0) pg Sodium 133 L (137-145) mmol/L Potassium 3.4 L (3.5-5.1) mmol/L BUN 4 L (7-17) mg/dL Glucose 167 H (74-99) mg/dL POC Glucose (mg/dL) 150 H (75-99) mg/dL Calcium 8.2 L (8.4-10.2) mg/dL Total Protein 5.0 L (6.3-8.2) g/dL Albumin 2.6 L (3.5-5.0) g/dL 02/03/21 02/04/21 02/04/21 Range/Units 20:45 06:47 07:23 RBC (3.80-5.40) m/uL Hgb 11.0 L (11.4-16.0) gm/dL Hct 34.3 L (34.0-46.0) % MCH 26.8 L (27.0-32.0) pg Sodium (137-145) mmol/L Potassium (3.5-5.1) mmol/L BUN (7-17) mg/dL Glucose (74-99) mg/dL POC Glucose (mg/dL) 145 H 145 H (75-99) mg/dL Calcium (8.4-10.2) mg/dL Total Protein (6.3-8.2) g/dL Albumin (3.5-5.0) g/dL 02/04/21 Range/Units 11:21 RBC (3.80-5.40) m/uL Hgb (11.4-16.0) gm/dL Hct (34.0-46.0) % MCH (27.0-32.0) pg Sodium (137-145) mmol/L Potassium (3.5-5.1) mmol/L BUN (7-17) mg/dL Glucose (74-99) mg/dL POC Glucose (mg/dL) 154 H (75-99) mg/dL Calcium (8.4-10.2) mg/dL Total Protein (6.3-8.2) g/dL Albumin (3.5-5.0) g/dL Assessment and Plan Assessment: Status post subtotal colectomy and r partial omentectomy for synchronous colon cancer with right and left colon. Postoperative ileus. Hypokalemia Hyponatremia Diabetes type 2 Glaucoma Hypertension History of cholecystectomy Obesity Plan: Patient is being continued on NG tube. Passing flatus. No complaints abdominal pain today. General surgery is on board. Continue GI and DVT prophylaxis. Continue to monitor closely.
--- NOTE | 2021-02-05 22:04 | P.PN ---
Subjective Progress Note Date: 02/05/21 Patient is a 65-year-old female was admitted to hospital after subtotal colectomy. X-ray abdomen was done yesterday showed diffuse bowel distention and possible ileus. Patient is currently NG tube. Patient is open to pass flatus and having small bowel meant. No complaints of nausea. No episodes of vomiting. No fever no chills. No cough or sputum production. 02/05/2021 Patient is currently resting in the bed comfortably. Did have a bowel small bowel movement today. NG tube has been clamped. Patient is tolerating liquids. Denies any complaints abdominal pain. No nausea vomiting or diarrhea. Advance diet as tolerated. Hematology is on board. Laboratory data reviewed. Current medications reviewed. Objective - Vital Signs Vital signs: Vital Signs Temp 98.2 F 02/05/21 19:10 Pulse 87 02/05/21 19:10 Resp 16 02/05/21 19:10 BP 134/77 02/05/21 19:10 Pulse Ox 100 02/05/21 19:10 Intake & Output 02/05/21 02/05/21 02/06/21 06:59 18:59 06:59 Output Total 750 Balance -750 Output: Gastric Drainage 750 Other: Voiding Method Toilet Toilet # Voids 2 - Exam PHYSICAL EXAMINATION: Patient is lying in the bed comfortably, no acute distress, awake alert and oriented.. HEENT: Normocephalic. Neck is supple. Pupils reactive. Nostrils clear. Oral cavity is moist. Neck reveals no JVD, carotid bruits, or thyromegaly. CHEST EXAMINATION: Trachea is central. Symmetrical expansion. Lung lovelace clear to auscultation and percussion. CARDIAC: Normal S1, S2 with no gallops. No murmurs ABDOMEN: Soft. Abdomen distended. Bowel sounds are present. Nontender.Bowel sounds normal. No organomegaly. No abdominal bruits. Extremities: reveal no edema. No clubbing or cyanosis Neurologically awake, alert, oriented x3 with well-coordinated movements. No focal deficits noted Skin: No rash or skin lesions. Psychiatric: Coperative. Nonsuicidal Musculoskeletal: No joint swelling or deformity. Normal range of motion. - Labs CBC & Chem 7: 02/04/21 07:23 02/04/21 07:23 Labs: Abnormal Lab Results - Last 24 Hours (Table) 02/05/21 02/05/21 02/05/21 Range/Units 07:16 11:27 16:23 POC Glucose (mg/dL) 135 H 131 H 117 H (75-99) mg/dL 02/05/21 Range/Units 20:45 POC Glucose (mg/dL) 109 H (75-99) mg/dL Assessment and Plan Assessment: Status post subtotal colectomy and r partial omentectomy for synchronous colon cancer with right and left colon. Postoperative ileus. Hypokalemia Hyponatremia Diabetes type 2 Glaucoma Hypertension History of cholecystectomy Obesity Plan: Patient was started on liquid diet. Did have a bowel movement today. NG tube was clamped. Passing flatus. No complaints abdominal pain today. General surgery is on board. Continue GI and DVT prophylaxis. Continue to monitor closely.
[2021-02-05] MEDS: ACETAMINOPHEN TAB 325 MG TAB PO PRN (22:38)
[2021-02-06] MEDS: KETOROLAC 15 MG/ML 1 ML VIAL IVP SCH ×3 (00:58→12:25)
[2021-02-06] MEDS: HEPARIN SODIUM,PORCINE/PF 5,000 UNIT/0.5 ML SYRINGE SQ SCH ×2 (00:59→09:15)
[2021-02-06] MEDS: LACTATED RINGERS 1,000 ML IV SCH (07:02)
[2021-02-06 07:03] LABS: Glucose,Whole Blood 114 mg/dL (75-99)
[2021-02-06] MEDS: INSULIN ASPART (NovoLOG) 100 UNIT/ML VIAL SQ SCH ×2 (07:03→11:58)
[2021-02-06] MEDS: INSULIN DETEMIR (LEVEMIR) 100 UNIT/ML SYR SQ SCH (07:47)
[2021-02-06] MEDS: metFORMIN 500 MG TAB PO SCH (07:48)
[2021-02-06] MEDS: ACETAMINOPHEN TAB 325 MG TAB PO PRN ×2 (07:48→14:50)
[2021-02-06] MEDS: PANTOPRAZOLE 40 MG TABLET PO SCH (07:48)
[2021-02-06] MEDS: BISOPROLOL-HCTZ 2.5-6.25 MG 1 EACH TAB PO SCH (07:49)
[2021-02-06] MEDS: DORZOLAMIDE-TIMOLOL 2.23%/0.68 10ML BTL BOTH EYES SCH (07:49)
[2021-02-06 08:07] VITALS: BP 121/74; PULSE 84; RESP 16; TEMP 98.1
[2021-02-06 11:04] LABS: HCT 32.4 % (37.2-46.3); MCHC 30.9 g/dL (32.0-37.0); MCV 87.6 fL (80.0-97.0); Mean Platelet Volume 10.3 fL (9.5-12.2); Platelet Count 298 X 10*3/uL (140-440); RDW 14.6 % (11.5-14.5); WBC 6.89 X 10*3/uL (4.50-10.00)
[2021-02-06 11:34] LABS: Acanthocytes 2+; Basophils # (A) 0.02 X 10*3/uL (0.00-0.10); Basophils % (A) 0.3 %; Eosinophils # (A) 0.29 X 10*3/uL (0.04-0.35); Eosinophils % (A) 4.2 %; Lymphocytes # (A) 1.37 X 10*3/uL (0.90-5.00); Lymphocytes % (A) 19.9 %; Monocytes # (A) 0.94 X 10*3/uL (0.20-1.00); Monocytes % (A) 13.6 %; Neutrophils # (A) 4.12 X 10*3/uL (1.80-7.70); Neutrophils % (A) 59.8 %
[2021-02-06 11:40] LABS: Glucose,Whole Blood 137 mg/dL (75-99)
[2021-02-06 12:35] LABS: African American GFR (CKD) 119.4 (60.0-200.0); Blood Urea Nitrogen <5.0 mg/dL (9.0-27.0); Carbon Dioxide 19.6 mmol/L (21.6-31.8); Chloride 109 mmol/L (96-109); Glucose 109 mg/dL (70-110); Potassium 3.7 mmol/L (3.5-5.5); Sodium 141 mmol/L (135-145)
[2021-02-06] MEDS: 0.9% NACL WITH KCL 20 MEQ/L 1,000 ML IV SCH (13:19)
--- NOTE | 2021-02-06 13:59 | P.DS ---
Providers Date of admission: 01/31/21 08:21 Expected date of discharge: 02/06/21 Attending physician: Mac Kohler Primary care physician: Florin Cruz Hospital Course: Discharge diagnosis 1. Synchronous colon cancer of right and left colon status post Subtotal colectomy and Partial omentectomy 2. Postoperative ileus 3. Diabetes mellitus type 2 Hospital course This 65-year-old female who was recently diagnosed with synchronous colon cancer of the right and left colon. She is status post subtotal colectomy and partial omentectomy. Patient did develop a postoperative ileus. She required NG tube to be placed. Since then NG tube is removed. She is having bowel movements and flatus. She is tolerating diet. Her pain is controlled. She is up and ambulating. She's afebrile. She is stable for discharge. Please refer to chart for any further details. Physician Manufacturing Accountant note has been reviewed by physician. Signing provider agrees with the documented findings, assessment, and plan of care. Patient Condition at Discharge: Stable Plan - Discharge Summary Discharge Rx Participant: No New Discharge Prescriptions: New HYDROcodone/APAP 5-325MG [[place] 5-325] 1 tab PO Q6HR PRN 3 Days #12 tab PRN Reason: Pain Acetaminophen Tab [Tylenol Tab] 650 mg PO Q4H PRN #30 tablet PRN Reason: Pain No Action Bisoprolol/Hydrochlorothiazide [Bisoprolol/Hydrochlorothiazide 2.5-6.25 mg] 1 tab PO DAILY metFORMIN HCL [Glucophage] 1,000 mg PO BID Dorzolamide/Timolol/Pf [Dorzolamide 2%-Timolol 0.5%] 1 drop BOTH EYES BID Discharge Medication List Bisoprolol/Hydrochlorothiazide [Bisoprolol/Hydrochlorothiazide 2.5-6.25 mg] 1 tab PO DAILY 01/29/21 [History] Dorzolamide/Timolol/Pf [Dorzolamide 2%-Timolol 0.5%] 1 drop BOTH EYES BID 01/29/21 [History] metFORMIN HCL [Glucophage] 1,000 mg PO BID 01/29/21 [History] HYDROcodone/APAP 5-325MG [[place] 5-325] 1 tab PO Q6HR PRN 3 Days #12 tab 02/02/21 [Rx] Acetaminophen Tab [Tylenol Tab] 650 mg PO Q4H PRN #30 tablet 02/06/21 [Rx] Follow up Appointment(s)/Referral(s): Mac Kohler MD [STAFF PHYSICIAN] - 1 Week Anthony Catherine MD [Primary Care Provider] - 3 Days Activity/Diet/Wound Care/Special Instructions: No driving while taking [place] No lifting over 10 pounds You may shower. No soaking or tub baths for 2 weeks Very light activity until you are reevaluated at your follow up appointment with your surgeon Patient educated to not take both the [place] and Tylenol together. Educated on total of 2 g of Tylenol in 24 hour period. Discharge Disposition: HOME SELF-CARE
== END 2021-02-06 14:54 | disposition home or self-care (01) | DRG 330 ==
LOC: 2ORMAIN 08:21 → 4SSUR 13:00
PROVIDERS: ADMIT Surgery; ATTEND Surgery
PROC: 0DNW0ZZ Release Peritoneum, Open Approach (ICD-10-PCS; principal; 2021-01-31 10:00)
PROC: 0DBM0ZZ Excision of Descending Colon, Open Approach (ICD-10-PCS; principal; 2021-01-31 10:00)
PROC: 0DBB0ZZ Excision of Ileum, Open Approach (ICD-10-PCS; principal; 2021-01-31 10:00)
PROC: 0DBU0ZZ Excision of Omentum, Open Approach (ICD-10-PCS; principal; 2021-01-31 10:00)
PROC: 0D9670Z Drainage of Stomach with Drainage Device, Via Natural or Artificial Opening (ICD-10-PCS; 2021-02-02)
DX: C18.2 Malignant neoplasm of ascending colon (principal); E87.1 Hypo-osmolality and hyponatremia; K56.7 Ileus, unspecified; K91.89 Other postprocedural complications and disorders of digestive system; C77.2 Secondary and unspecified malignant neoplasm of intra-abdominal lymph nodes; C18.6 Malignant neoplasm of descending colon; E11.9 Type 2 diabetes mellitus without complications; E66.9 Obesity, unspecified; E87.6 Hypokalemia; K66.0 Peritoneal adhesions (postprocedural) (postinfection); H40.9 Unspecified glaucoma; I10 Essential (primary) hypertension; Z68.34 Body mass index [BMI] 34.0-34.9, adult; Z79.84 Long term (current) use of oral hypoglycemic drugs; Z80.0 Family history of malignant neoplasm of digestive organs; Z90.49 Acquired absence of other specified parts of digestive tract; Z79.899 Other long term (current) drug therapy
CPT/HCPCS: 74019; 80048; 80053; 83036; 85025; 86850; 86900; 86901; 88309; 94760

== ENCOUNTER 2021-03-21 07:24 | Day surgery (SDC) | payer BC ==
[2021-03-19 14:08] VITALS: BMI 32.1
[~2021-03-21 07:24] MED LIST changes: -DEXAMETHASONE SOD PHOSPHATE 4 MG/ML 1 ML VIAL IV ONE; -HYDROmorphone 0.5 MG/0.5 ML SYRINGE IVP PRN; +LACTATED RINGERS 1,000 ML IV SCH; -ONDANSETRON 4 MG/2 ML VIAL IVP ONE; +Pre Op ABX Message 1 EACH MISC MISCELLANE ONE; -SCOPOLAMINE 1.5MG/72HR PATCH TRANSDERM ONE; -metroNIDAZOLE-NS PMX 500 MG in SALINE 1 100ML.BAG IVPB PRN
[2021-03-21 07:43] VITALS: RESP 16
[2021-03-21] MEDS ORDERED: ONDANSETRON 4 MG/2 ML VIAL ONE (07:56)
[2021-03-21] MEDS ORDERED: DEXAMETHASONE SOD PHOSPHATE 4 MG/ML 1 ML VIAL IV ONE (08:06)
[2021-03-21] MEDS ORDERED: ONDANSETRON 4 MG/2 ML VIAL IVP ONE (08:07)
[2021-03-21 08:09] LABS: Glucose,Whole Blood 185 mg/dL (75-99)
[2021-03-21] MEDS ORDERED: BUPIVACAINE (PF) 0.25% 30 ML VIAL SQ ONE ×3 (08:25→08:49)
[2021-03-21] MEDS ORDERED: HEPARIN SODIUM,PORCINE 100 UNIT/ML 5 ML VIAL IV ONE ×2 (08:26→08:57)
[2021-03-21] MEDS ORDERED: LIDOCAINE 1% INJ 10MG/ML (20 ML MDV) ONE (08:29)
[2021-03-21] MEDS ORDERED: MIDAZOLAM 2 MG/2 ML VIAL ONE (08:29)
[2021-03-21] MEDS ORDERED: PROPOFOL 10 MG/ML 20 ML VIAL IV ONE (08:29)
[2021-03-21] MEDS ORDERED: fentaNYL (PF) 50 MCG/ML 2 ML AMP ONE (08:29)
--- NOTE | 2021-03-21 09:11 | P.GSHP ---
History of Present Illness H&P Date: 03/21/21 Chief Complaint: Colon cancer This is a 65-year-old female who was previously diagnosed colon cancer. Patient presents today for Port-A-Cath insertion Past Medical History Past Medical History: Cancer, Diabetes Mellitus, Eye Disorder, Hypertension Additional Past Medical History / Comment(s): colon cancer with surgery 01/31/21,. glaucoma History of Any Multi-Drug Resistant Organisms: None Reported Past Surgical History: Bowel Resection, Cholecystectomy Additional Past Surgical History / Comment(s): colectomy with partial omenectomy (01/31/21) Past Anesthesia/Blood Transfusion Reactions: No Reported Reaction Past Psychological History: No Psychological Hx Reported Smoking Status: Never smoker Past Alcohol Use History: Rare Past Drug Use History: None Reported - Past Family History Father Family Medical History: Cancer Additional Family Medical History / Comment(s): prostate cancer x. colon cancer Medications and Allergies Home Medications Medication Instructions Recorded Confirmed Type Bisoprolol/Hydrochlorothiazide 1 tab PO DAILY 01/29/21 03/21/21 History [Bisoprolol/Hydrochlorothiazide 2.5-6.25 mg] Dorzolamide/Timolol/Pf 1 drop BOTH EYES BID 01/29/21 03/21/21 History [Dorzolamide 2%-Timolol 0.5%] metFORMIN HCL [Glucophage] 1,000 mg PO BID 01/29/21 03/21/21 History Acetaminophen [Tylenol Extra 500 - 1,000 mg PO DIRECTED PRN 03/19/21 03/21/21 History Strength] Cetirizine HCl [Zyrtec] 10 mg PO DIRECTED PRN 03/19/21 03/21/21 History Allergies Allergy/AdvReac Type Severity Reaction Status Date / Time No Known Allergies Allergy Verified 03/21/21 07:53 Surgical - Exam Vital Signs Temp Pulse Resp BP Pulse Ox 97.4 F L 83 16 138/80 99 03/21/21 07:41 03/21/21 07:41 03/21/21 07:41 03/21/21 07:41 03/21/21 07:41 - General well developed, well nourished, no distress - Eyes PERRL - ENT normal pinna - Neck no masses - Respiratory normal expansion - Cardiovascular Rhythm: regular - Abdomen Abdomen: soft, non tender Results - Labs Abnormal Lab Results - Last 24 Hours (Table) 03/21/21 Range/Units 08:08 POC Glucose (mg/dL) 185 H (75-99) mg/dL Assessment and Plan Assessment: Colon cancer. We'll perform Port-A-Cath insertion
[2021-03-21 09:14] VITALS: TEMP 98
--- NOTE | 2021-03-21 09:14 | P.OP ---
Date of Procedure: 03/21/21 Preoperative Diagnosis: Colon cancer Postoperative Diagnosis: Colon cancer Procedure(s) Performed: Right subclavian Port-A-Cath Anesthesia: CARYN Surgeon: Mac Kohler Estimated Blood Loss (ml): 5 Pathology: none sent Condition: stable Disposition: PACU Description of Procedure: PROCEDURE: The patient was placed on the operating table in the supine position. She received MAC anesthetic. The [right] chest was prepped and draped in the usual sterile fashion. The skin underneath the right clavicle was anesthetized with 1% Xylocaine and using Seldinger technique, the right subclavian vein was cannulized. The wire was placed through the needle and positioned under fluoroscopy. Next, the needle was removed and the port site was anesthetized with 1% Xylocaine. Skin was incised with #15 blade and port pocket was made using blunt and sharp dissection. Following this the catheter was attached to the sport and the port was flushed. The port was positioned into the pocket site and was secured with 3-0 Vicryl suture. The catheter was then brought out through the wire site and then the dilator sheath was placed over the wire and the dilator and the wire were removed. The catheter was placed through the sheath and the sheath was removed. The port was flushed with hep-lock solution. Skin was closed with interrupted 3-0 Vicryl sutures. Steri-Strips were applied. The patient tolerated the procedure well. The patient was sent to recovery room for chest x-ray after the procedure.
[2021-03-21 09:31] LABS: Glucose,Whole Blood 173 mg/dL (75-99)
--- NOTE | 2021-03-21 09:53 | XR ---
EXAMINATION TYPE: XR chest 1V portable DATE OF EXAM: 03/21/2021 COMPARISON: NONE HISTORY: Status post central venous catheter placement TECHNIQUE: Single frontal view of the chest is obtained. FINDINGS: Right-sided port is present via a subclavian approach, distal tip is overlying the superio r vena cava. There is no evident pneumothorax or pleural effusion. Lung biopsy low. Subsegmental basi lar atelectatic changes are suspected. Cardiac mediastinal silhouette within normal limits accounting for rotation. Right hemidiaphragm mildly elevated. Surgical clips are present right upper quadrant. Thoracic spondylosis is noted incidentally. IMPRESSION: No evident complication status post central venous catheter placement. Probable basilar atelectasis.
[2021-03-21 10:48] VITALS: BP 111/78; PULSE 70
--- NOTE | 2021-03-21 11:00 | FL ---
Fluoroscopy HISTORY: Port-A-Cath insertion 3 seconds fluoroscopy time supplied to the referring clinician. 3 intraoperative C-arm images docume nt the procedure. See dictated report from general surgery.
== END 2021-03-21 10:35 | disposition home or self-care (01) ==
LOC: OR 07:24
PROVIDERS: ATTEND Surgery
DX: C18.9 Malignant neoplasm of colon, unspecified (principal); E11.9 Type 2 diabetes mellitus without complications; I10 Essential (primary) hypertension; H40.9 Unspecified glaucoma; Z90.49 Acquired absence of other specified parts of digestive tract; Z80.42 Family history of malignant neoplasm of prostate; Z80.0 Family history of malignant neoplasm of digestive organs; Z79.84 Long term (current) use of oral hypoglycemic drugs; Z79.899 Other long term (current) drug therapy
CPT/HCPCS: 77001; 71045; 36561; C1788; J2250; J1642; J1100; J2405; J2001; J3010; J2704; J1644

== ENCOUNTER → 2021-08-16 | Outpatient (CLI) | payer BC ==
--- NOTE | 2021-08-21 12:21 | MM ---
Reason for exam: screening (asymptomatic). Last mammogram was performed 2 years and 11 months ago. History: Patient is postmenopausal and has history of colon cancer at age 65. Family history of breast cancer in maternal cousin at age 40. Benign ultrasound-guided core biopsy of the left breast, June 23, 2003. 2 benign cyst aspirations of the left breast. Physical Findings: A clinical breast exam by your physician is recommended on an annual basis and results should be correlated with mammographic findings. MG 3D Screening Mammo W/Cad Bilateral CC and MLO view(s) were taken. Prior study comparison: September 02, 2018, bilateral MG diagnostic mammo w CAD KELLY. June 27, 2015, bilateral MG 3d diag mammo w/cad KELLY. The breast tissue is heterogeneously dense. This may lower the sensitivity of mammography. There is chronic nodularity in the right breast. Right sided injection port. No significant changes when compared with prior studies. ASSESSMENT: Benign, BI-RAD 2 RECOMMENDATION: Routine screening mammogram of both breasts in 1 year. Patient should continue monthly self breast exams. A negative report should not preclude additional follow up of suspicious palpable abnormalities.
== END | disposition home or self-care (01) ==
LOC: RADMAMWWP 14:45
PROVIDERS: ATTEND Internal Medicine
DX: Z12.31 Encounter for screening mammogram for malignant neoplasm of breast (principal); Z80.3 Family history of malignant neoplasm of breast; Z78.0 Asymptomatic menopausal state
CPT/HCPCS: 77063; 77067

== ENCOUNTER → 2022-01-07 | Outpatient (CLI) | payer BC ==
[2022-01-07 18:00] LABS: HCT 40.9 % (37.2-46.3); HGB 12.8 g/dL (12.0-15.0); MCH 26.9 pg (27.0-32.0); MCHC 31.3 g/dL (32.0-37.0); MCV 85.9 fL (80.0-97.0); Mean Platelet Volume 10.2 fL (9.5-12.2); NRBC Per 100 WBC 0 /100 WBCS (0.0-0.0); Platelet Count 212 X 10*3/uL (140-440); RBC 4.76 X 10*6/uL (4.10-5.20); RDW 14.3 % (11.5-14.5); WBC 6.53 X 10*3/uL (4.50-10.00)
== END | disposition home or self-care (01) ==
LOC: LABWHC1 11:13
PROVIDERS: ATTEND Surgery
DX: K43.0 Incisional hernia with obstruction, without gangrene (principal)
CPT/HCPCS: 36415; 83036; 85027

== ENCOUNTER 2022-01-22 05:56 | Observation (INO) | payer BC ==
[2022-01-18 14:38] VITALS: BMI 29.3
[~2022-01-22 05:56] MED LIST changes: +DEXAMETHASONE SOD PHOSPHATE 4 MG/ML 1 ML VIAL IV ONE; +ONDANSETRON 4 MG/2 ML VIAL IVP ONE; +ONDANSETRON 4 MG/2 ML VIAL ONE; -Pre Op ABX Message 1 EACH MISC MISCELLANE ONE
[2022-01-22 06:50] LABS: Glucose,Whole Blood 147 mg/dL (70-110)
[2022-01-22] MEDS ORDERED: MIDAZOLAM 2 MG/2 ML VIAL IVP ONE (07:02)
--- NOTE | 2022-01-22 07:17 | P.ANPRN ---
Procedure Note - Anesthesia - Nerve Block Performed Bilateral Rectus Abdominis Single Time Out Performed: Yes Date of Procedure: 01/22/22 Procedure Start Time: 07:02 Procedure Stop Time: 07:14 Location of Patient: PreOp Indication: Acute Post-Operative Pain, Requested by Surgeon Sedation Type: Sedate with meaningful contact maintained Preparation: Sterile Prep Position: Supine Catheter: None Needle Types: Facet Needle Gauge: 21 Ultrasound used to visualize needle placement: Yes Ultrasound used to observe medication spread: Yes Injectate: Other (see comment) (0.25% Ropivacaine 60 mL total volume) Blood Aspirated: No Pain Paresthesia on Injection Noted: No Resistance on Injection: Normal Image Stored and Saved: Yes Events: Uneventful and Well Tolerated
[2022-01-22] MEDS ORDERED: PROPOFOL 10 MG/ML 20 ML VIAL IV ONE (07:51)
[2022-01-22] MEDS ORDERED: NEOSTIGMINE 1 MG/ML 10 ML VIAL ONE (07:51)
[2022-01-22] MEDS ORDERED: MIDAZOLAM 2 MG/2 ML VIAL ONE (07:51)
[2022-01-22] MEDS ORDERED: ROCURONIUM 10 MG/ML (5 ML VIAL) IV ONE (07:51)
[2022-01-22] MEDS ORDERED: SUCCINYLCHOLINE CHLORIDE 200 MG/10 ML VIAL IV ONE (07:51)
[2022-01-22] MEDS ORDERED: LIDOCAINE 2% INJ 20 MG/ML (2 ML VIAL) ONE (07:51)
[2022-01-22] MEDS ORDERED: GLYCOPYRROLATE 0.2 MG/ML 2 ML VIAL ONE (07:51)
[2022-01-22] MEDS ORDERED: ROPIVACAINE 5 MG/ML 30 ML VIAL ONE (07:51)
[2022-01-22] MEDS ORDERED: fentaNYL (PF) 50 MCG/ML 2 ML AMP ONE (07:51)
[2022-01-22] MEDS ORDERED: BUPIVACAIN-EPI 0.25%-1:200,000 30 ML VIAL SQ ONE (08:17)
--- NOTE | 2022-01-22 09:20 | P.GSHP ---
History of Present Illness H&P Date: 01/22/22 Chief Complaint: Incarcerated incisional hernia This a 66-year-old female who's developed an incarcerated incisional hernia after subtotal colectomy. Patient is going to pain and mass in the superior portion of her incision scar. Past Medical History Past Medical History: Cancer, Diabetes Mellitus, Eye Disorder, Hypertension Additional Past Medical History / Comment(s): colon cancer with surgery 01/31/21,. pre-glaucoma History of Any Multi-Drug Resistant Organisms: None Reported Past Surgical History: Bowel Resection, Cholecystectomy Additional Past Surgical History / Comment(s): colectomy with partial omenectomy (01/31/21) Past Anesthesia/Blood Transfusion Reactions: No Reported Reaction Smoking Status: Never smoker - Past Family History Father Family Medical History: Cancer Additional Family Medical History / Comment(s): prostate cancer x. colon cancer Medications and Allergies Home Medications Medication Instructions Recorded Confirmed Type Bisoprolol/Hydrochlorothiazide 1 tab PO DAILY 01/29/21 01/22/22 History [Bisoprolol/Hydrochlorothiazide 2.5-6.25 mg] Dorzolamide/Timolol/Pf 1 drop BOTH EYES BID 01/29/21 01/18/22 History [Dorzolamide 2%-Timolol 0.5%] Acetaminophen [Tylenol Extra 500 - 1,000 mg PO DIRECTED PRN 03/19/21 01/22/22 History Strength] Cetirizine HCl [Zyrtec] 10 mg PO DIRECTED PRN 03/19/21 01/22/22 History Atorvastatin [Lipitor] 5 mg PO HS 01/15/22 01/18/22 History Empagliflozin/Metformin HCl 1 each PO BID 01/15/22 01/22/22 History [Synjardy 12.5-1,000 mg Tablet] Allergies Allergy/AdvReac Type Severity Reaction Status Date / Time No Known Allergies Allergy Verified 01/22/22 06:20 Surgical - Exam Vital Signs Temp Pulse Resp BP Pulse Ox 97.5 F L 72 18 120/67 99 01/22/22 06:36 01/22/22 06:36 01/22/22 06:36 01/22/22 06:36 01/22/22 06:36 - General well developed, well nourished, no distress - Eyes PERRL - ENT normal pinna - Neck no masses - Respiratory normal expansion - Cardiovascular Rhythm: regular - Abdomen 5 cm incarcerated incisional hernia located superior portion of her midline scar Abdomen: soft, non tender Results - Labs Abnormal Lab Results - Last 24 Hours (Table) 01/22/22 Range/Units 06:45 POC Glucose (mg/dL) 147 H (70-110) mg/dL Assessment and Plan Assessment: Incisional hernia. We'll perform laparoscopic robotic system repair.
[2022-01-22] MEDS ORDERED: HYDROmorphone 0.5 MG/0.5 ML SYRINGE IVP PRN (09:23)
[2022-01-22] MEDS ORDERED: NALOXONE 0.4 MG/ML 1 ML VIAL IV PRN (09:23)
[2022-01-22] MEDS ORDERED: HYDROcodone/APAP 5-325MG 1 EACH TAB PO PRN (09:23)
[2022-01-22] MEDS ORDERED: ONDANSETRON 4 MG/2 ML VIAL IVP PRN (09:23)
[2022-01-22] MEDS ORDERED: LACTATED RINGERS 1,000 ML IV ONE ×2 (09:23→09:33)
--- NOTE | 2022-01-22 09:23 | P.OP ---
Date of Procedure: 01/22/22 Preoperative Diagnosis: Incisional hernia Postoperative Diagnosis: Incarcerated incisional hernia Adhesions Procedure(s) Performed: Diagnostic laparoscopy Open repair of incisional hernia with mesh Anesthesia: CARYN Surgeon: Mac Kohler Estimated Blood Loss (ml): 5 Pathology: none sent Condition: stable Disposition: PACU Description of Procedure: The patient's placed on the operative table in the supine position. She received general endotracheal minutes. Her abdomen was prepped and draped usual fashion. The patient incisional hernia located superior portion of her midline scar. A left upper quadrant skin incision was made and the Veress needles placed into the. Cavity a positive drop test was used to confirm the position of her stool. The abdomen was insufflated after adequate insufflation a 5 mm optical trochars placed in the pleural cavity. The midline area was examined. There were dense adhesions along the midline small bowel to be stuck into the abdominal wall. Due to the number of adhesions inside to convert the procedure of open procedure. The abdomen was desufflated and then a skin incision was made in the area of the incisional hernia. The subcutaneous tissue is divided off the fascia. The fascial defect measured proximally a 15 x 5 cm. The fascial defect was then closed using. 0 Ethibond suture. The hernia sac was inverted back into the pleural cavity. After the fascial repair a piece of #1 Nova fix was used to buttress the repair. A piece of Prolene mesh was then cut to appropriate size and secured with secure strap tacker. A ALFREDA drain was placed over top the mesh and brought out through separate stab incision. Scarp a's fascia with 0 Vicryl. Skin was closed cheyanne. Patient top she will was sent to recovery room in stable condition.
[2022-01-22] MEDS: HYDROmorphone 0.5 MG/0.5 ML SYRINGE IVP PRN ×2 (09:31→09:47)
[2022-01-22] MEDS ORDERED: KETOROLAC 15 MG/ML 1 ML VIAL IVP ONE (14:17)
[2022-01-22] MEDS: KETOROLAC 15 MG/ML 1 ML VIAL IVP SCH ×2 (14:43→17:38)
[2022-01-22 16:40] LABS: Glucose,Whole Blood 176 mg/dL (70-110)
[2022-01-22] MEDS ORDERED: DEXTROSE 50% SYRINGE 50 ML IVP PRN ×2 (16:47)
[2022-01-22] MEDS: INSULIN ASPART (NovoLOG) 100 UNIT/ML VIAL SQ SCH ×2 (17:39→20:37)
[2022-01-22 20:22] LABS: Glucose,Whole Blood 189 mg/dL (70-110)
[2022-01-22] MEDS: DOCUSATE 100 MG CAP PO SCH (20:37)
[2022-01-22] MEDS ORDERED: ATORVASTATIN 10 MG TAB PO SCH (21:00)
[2022-01-22] MEDS: DORZOLAMIDE-TIMOLOL 2.23%/0.68 10ML BTL BOTH EYES SCH (21:36)
[2022-01-22] MEDS: NON FORMULARY DRUG (Empagliflozin/Metformin Hcl [Synjardy 12.5-1,000 Mg Tablet] 1 EACH Tab PO SCH (21:37)
[2022-01-23] MEDS: KETOROLAC 15 MG/ML 1 ML VIAL IVP SCH ×3 (00:12→12:34)
--- NOTE | 2022-01-23 03:06 | CONS ---
CONSULTATION REASON FOR CONSULTATION: Advice regarding diabetes and other medical issues, requested by Dr. Kohler. HISTORY OF PRESENT ILLNESS: This 66-year-old woman with a past medical history of multiple medical illnesses including diabetes mellitus, underwent diagnostic laparoscopy and open repair of the incisional hernia with mesh. The patient tolerated the procedure well. There is no history of fever, rigors, chills at this time. PAST MEDICAL HISTORY: Reviewed, include diabetes mellitus and eye disease. HOME MEDICATIONS: Also reviewed include, doses and rest of medication noted. ALLERGIES: None. FAMILY HISTORY: History of prostate cancer. SOCIAL HISTORY: No history of smoking, alcohol. REVIEW OF SYSTEMS: A 14-point review of systems is negative except mentioned earlier. PHYSICAL EXAMINATION: VITAL SIGNS: Pulse is 95, blood pressure 119/75, and respirations 16. HEENT: Conjunctivae normal. NECK: No jugular venous distention. No carotid bruit. CARDIAC: S1, S2 muffled. RESPIRATIONS: Breath sounds slightly diminished in the bases. No rhonchi, no crackles. ABDOMEN: Soft status post surgery. LEGS: No edema. No swelling. NERVOUS SYSTEM: No focal deficit. SKIN: As mentioned earlier. JOINTS: No active deforming arthropathy. LABS: Accu-Cheks 176. ASSESSMENT: 1. Status post repair of incisional hernia. 2. Diabetes mellitus, type 2. 3. Hypertension. 4. History of colon cancer surgery. RECOMMENDATIONS: This 66-year-old woman who presented after surgery, at this time I recommend to continue the current medications, symptomatic treatment. Otherwise, recommend Accu- Cheks a.c. and h.s. and NovoLog scale. Resume the home medications. Closely follow with surgery. Further recommendations to follow. Recommend close followup with Dr. Catherine after discharge. MMODL / IJN: [id number] / LUCINA
[2022-01-23 03:18] LABS: Estimated Average Glucose UNC
[2022-01-23 07:05] LABS: Glucose,Whole Blood 144 mg/dL (70-110)
[2022-01-23] MEDS: INSULIN ASPART (NovoLOG) 100 UNIT/ML VIAL SQ SCH ×2 (07:15→12:38)
[2022-01-23 07:37] VITALS: BP 111/68; PULSE 79; RESP 18; TEMP 97.9
[2022-01-23] MEDS ORDERED: ENOXAPARIN 40 MG/0.4 ML SYRINGE SQ SCH (09:00)
[2022-01-23] MEDS ORDERED: BISOPROLOL-HCTZ 2.5-6.25 MG 1 EACH TAB PO SCH (09:00)
[2022-01-23] MEDS ORDERED: LORATADINE 10 MG TAB PO PRN (09:00)
[2022-01-23] MEDS: DOCUSATE 100 MG CAP PO SCH (10:14)
[2022-01-23] MEDS: NON FORMULARY DRUG (Empagliflozin/Metformin Hcl [Synjardy 12.5-1,000 Mg Tablet] 1 EACH Tab PO SCH (10:15)
[2022-01-23] MEDS: DORZOLAMIDE-TIMOLOL 2.23%/0.68 10ML BTL BOTH EYES SCH (10:15)
[2022-01-23] MEDS ORDERED: ACETAMINOPHEN TAB 325 MG TAB PO PRN (10:23)
[2022-01-23 11:35] LABS: Glucose,Whole Blood 205 mg/dL (70-110)
--- NOTE | 2022-01-23 11:54 | P.DS ---
Providers Date of admission: 01/23/22 08:27 Expected date of discharge: 01/23/22 Attending physician: Mac Kohler Consults: 01/22/22 09:23 Consult Physician Routine Consulting Provider: Irlanda Menard Consult Reason/Comments: Medical management Do you want consulting provider notified?: Yes Primary care physician: Florin Cruz Hospital Course: Discharge diagnosis 1. Incarcerated incisional hernia 2. Adhesions Hospital course This is a 66-year-old female who developed an incarcerated incisional hernia after subtotal colectomy. Patient is status post diagnostic laparoscopy and open repair of incisional hernia with mesh. Her pain is controlled. She denies any nausea or vomiting. She is tolerating diet. She's afebrile. She has been up and ambulating. She is stable for discharge. Patient will be discharged with ALFREDA drain. ALFREDA drain instructions reviewed with patient. Please refer to chart for any further details. Physician Jig Grinder Set Up Operator note has been reviewed by physician. Signing provider agrees with the documented findings, assessment, and plan of care. Patient Condition at Discharge: Stable Plan - Discharge Summary Discharge Rx Participant: Yes New Discharge Prescriptions: New Ibuprofen [Motrin] 600 mg PO Q8HR PRN #30 tab PRN Reason: Pain Acetaminophen Tab [Tylenol] 1,000 mg PO Q6HR PRN #30 tablet PRN Reason: Pain Continue Cetirizine HCl [Zyrtec] 10 mg PO DIRECTED PRN PRN Reason: Allergy Symptoms Bisoprolol/Hydrochlorothiazide [Bisoprolol/Hydrochlorothiazide 2.5-6.25 mg] 1 tab PO DAILY Dorzolamide/Timolol/Pf [Dorzolamide 2%-Timolol 0.5%] 1 drop BOTH EYES BID Atorvastatin [Lipitor] 5 mg PO HS Empagliflozin/Metformin HCl [Synjardy 12.5-1,000 mg Tablet] 1 each PO BID Discontinued Acetaminophen [Tylenol Extra Strength] 500 - 1,000 mg PO DIRECTED PRN PRN Reason: Pain Discharge Medication List Bisoprolol/Hydrochlorothiazide [Bisoprolol/Hydrochlorothiazide 2.5-6.25 mg] 1 tab PO DAILY 01/29/21 [History] Dorzolamide/Timolol/Pf [Dorzolamide 2%-Timolol 0.5%] 1 drop BOTH EYES BID 01/29/21 [History] Cetirizine HCl [Zyrtec] 10 mg PO DIRECTED PRN 03/19/21 [History] Atorvastatin [Lipitor] 5 mg PO HS 01/15/22 [History] Empagliflozin/Metformin HCl [Synjardy 12.5-1,000 mg Tablet] 1 each PO BID 01/15/22 [History] Acetaminophen Tab [Tylenol] 1,000 mg PO Q6HR PRN #30 tablet 01/23/22 [Rx] Ibuprofen [Motrin] 600 mg PO Q8HR PRN #30 tab 01/23/22 [Rx] Follow up Appointment(s)/Referral(s): Mac Kohler MD [STAFF PHYSICIAN] - 1 Week Patient Instructions/Handouts: [facility]-Jackson Drain Care (DC), Ventral Hernia Repair (DC) Activity/Diet/Wound Care/Special Instructions: No lifting over 10 pounds Shower daily. No soaking or tub baths for 2 weeks Very light activity until you are reevaluated at your follow up appointment with your surgeon Keep a log of ALFREDA drain output and bring with you to your follow-up appointment Milk/strip drains 2-3 times a day Discharge Disposition: HOME SELF-CARE
--- NOTE | 2022-01-24 06:08 | PN ---
PROGRESS NOTE SUBJECTIVE: This is a 66-year-old woman, who was admitted after repair of incisional hernia is improving significantly. No chest pain. No palpitations. No fever. PHYSICAL EXAMINATION: VITAL SIGNS: Pulse 82, blood pressure 100/60, respirations 17. HEENT: Conjunctivae normal. NECK: No JVD. CARDIOVASCULAR: S1, S2. RESPIRATIONS: Breath sounds diminished at the bases. ABDOMEN: Soft, status post surgery. NERVOUS SYSTEM: No focal deficits. LABS: Accu-Cheks are noted. ASSESSMENT: 1. Status post repair of incisional hernia. 2. Diabetes mellitus, type 2. 3. Hypertension. 4. History of colon cancer surgery. DISCUSSION AND RECOMMENDATIONS: I recommend to continue current management, symptomatic treatment. Monitor blood sugars closely. Resume home medications. IS spirometry. The rest of the recommendations per surgery. Follow with primary physician closely. Further recommendations to follow. MMODL / IJN: [id number] /
== END 2022-01-23 13:30 | disposition home or self-care (01) ==
LOC: OR 05:56 → 4SSUR 09:19 → OR 01-23 08:27 → 4SSUR 01-23 08:27
PROVIDERS: ADMIT Surgery; ATTEND Surgery
DX: K43.0 Incisional hernia with obstruction, without gangrene (principal); K66.0 Peritoneal adhesions (postprocedural) (postinfection); G89.18 Other acute postprocedural pain; E11.9 Type 2 diabetes mellitus without complications; I10 Essential (primary) hypertension; Z85.038 Personal history of other malignant neoplasm of large intestine; Z90.49 Acquired absence of other specified parts of digestive tract; Z80.0 Family history of malignant neoplasm of digestive organs; Z80.42 Family history of malignant neoplasm of prostate; Z79.899 Other long term (current) drug therapy
CPT/HCPCS: 96372; 96374; 64488; 83036; 49561; 49568; G0378; C1781; J2250; J0330; J1100; J2710; J0690; J2405; J1650; J3010; J2795; J1885 ×2; J2704; J1170; J2001

== ENCOUNTER → 2022-08-19 | Outpatient (CLI) | payer BC | END | disposition home or self-care (01) | LOC: RADMAMWWP 09:23 | PROVIDERS: ATTEND Internal Medicine | DX: Z53.9 Procedure and treatment not carried out, unspecified reason (principal) ==

== ENCOUNTER → 2022-08-19 | Outpatient (CLI) | payer BC ==
--- NOTE | 2022-08-19 11:16 | BD ---
EXAMINATION TYPE: Axial Bone Density DATE OF EXAM: 08/19/2022 CLINICAL HISTORY: 66 years old Female. ICD-10 CODE: Z78.0 Height: 5 ft 4 in Weight: 194 FRAX RISK QUESTIONS: Alcohol (3 or more units per day): no Family History (Parent hip fracture): no Glucocorticoids (More than 3mos): no (Ex: prednisone, prednisolone, methylprednisolone, dexamethasone, and hydrocortisone). History of Fracture in Adulthood: no Secondary Osteoporosis: 1. Type 1 Diabetes: no 2. Hyperthyroidism: no 3. Menopause before 45: no 4. Malnutrition: no 5. Chronic liver disease: no Rheumatoid Arthritis: no Current Tobacco Use: no RISK FACTORS HISTORY OF: Surgery to Spine/Hip(right/left)/Wrist (right/left): no Family History of Osteoporosis: no Active: yes Diet low in dairy products/other sources of calcium: no Postmenopausal woman: yes Take estrogen and/or progesterone medications: no Lost more than 2 inches in height since high school: no Frequent falls: no Poor Health: good Hyperparathyroidism: no Adrenal Insufficiency: no MEDICATIONS: Additional Medications: metformin, blood pressure meds, lipitor Additional History: colon cancer 2021 six months of chemo EXAM MEASUREMENTS: Bone mineral densitometry was performed using the [employer]. Bone mineral density as measured about the Lumbar spine is: ----- L1-L4(G/cm2): 1.143 T Score Values are as follows: ----- L1: -0.2 ----- L2: -0.4 ----- L3: 0.1 ----- L4: -0.7 ----- L1-L4: -0.3 Z Score Values are as follows: ----- L1: 0.6 ----- L2: 0.4 ----- L3: 0.9 ----- L4: 0.1 ----- L1-L4: 0.5 baseline Bone mineral density about the R hip (g/cm2): 0.916 Bone mineral density about the L hip (g/cm2): 0.877 T Score values are as follows: -----R Neck: -0.9 -----L Neck: -1.2 -----R Total: 0.1 -----L Total: 0.4 Z Score values are as follows: -----R Neck: 0.1 -----L Neck: -0.2 -----R Total: 0.7 -----L Total: 1.0 baseline FRAX%s: The graph provided illustrates a 7.7 % chance for a major osteoporotic fx and a 0.6 % chance for the hips probability for fx in 10 years time. IMPRESSION: Osteopenia (T Score between -2.5 and -1) femoral neck level left hip. There is slightly increased risk of fracture and the patient may be considered for treatment. Re-Screen 2-5 years. NOTE: T-SCORE=SD OF THE YOUNG ADULT MEAN.
--- NOTE | 2022-08-20 08:54 | MM ---
Reason for Exam: Screening (asymptomatic). Last screening mammogram was performed 12 month(s) ago. Patient History: Menarche at age 16. First Full-Term at age 25. Postmenopausal. Benign Cyst Aspiration on the left side. Benign Cyst Aspiration on the left side. 06/23/2003, Benign Ultrasound-Guided Core Biopsy on the left side. Maternal cousin had breast cancer, age 40. Risk Values: Louisa 5 year model risk: 1.6%. NCI Lifetime model risk: 6.3%. Prior Study Comparison: 06/27/2015 Bilateral Diagnostic Mammogram, [facility]. 09/02/2018 Bilateral Diagnostic Mammogram, [facility]. 08/16/2021 Bilateral Screening Mammogram, [facility]. Tissue Density: The breast tissue is heterogeneously dense. This may lower the sensitivity of mammography. Findings: Analyzed By CAD. There is no suspicious group of microcalcifications or new suspicious mass in either breast. Chronic nodularity within the right breast. Overall Assessment: Benign, BI-RAD 2 Management: Screening Mammogram of both breasts in 1 year. A clinical breast exam by your physician is recommended on an annual basis and results should be correlated with mammographic findings. Electronically signed and approved by: Sourav Molina D.O.
== END | disposition home or self-care (01) ==
LOC: RADBDWWP 09:22
PROVIDERS: ATTEND Obstetrics & Gynecology
DX: Z12.31 Encounter for screening mammogram for malignant neoplasm of breast (principal); M85.852 Other specified disorders of bone density and structure, left thigh; Z78.0 Asymptomatic menopausal state; Z80.3 Family history of malignant neoplasm of breast
CPT/HCPCS: 77063; 77067; 77080

== ENCOUNTER 2022-08-29 06:53 | Day surgery (SDC) | payer BC ==
[2022-08-26 15:41] VITALS: BMI 32.9
[~2022-08-29 06:53] MED LIST changes: -ACETAMINOPHEN TAB 500 MG TAB PO PRN; -DEXAMETHASONE SOD PHOSPHATE 4 MG/ML 1 ML VIAL IV ONE; -HEPARIN SODIUM,PORCINE/PF 5,000 UNIT/0.5 ML SYRINGE SQ PRN; -ONDANSETRON 4 MG/2 ML VIAL IVP ONE; -ONDANSETRON 4 MG/2 ML VIAL ONE
[2022-08-29] MEDS ORDERED: LACTATED RINGERS 1,000 ML IV ONE (07:38)
[2022-08-29 07:41] VITALS: TEMP 97.4
[2022-08-29] MEDS ORDERED: PROPOFOL 10 MG/ML 20 ML VIAL IV ONE (07:44)
[2022-08-29 07:50] LABS: Glucose,Whole Blood 196 mg/dL (70-110)
--- NOTE | 2022-08-29 07:50 | P.GSHP ---
History of Present Illness H&P Date: 08/29/22 Chief Complaint: History of colon cancer This is a 66-year-old female who presents today for colonoscopy. Patient has appears history of subtotal colectomy for colon cancer. Past Medical History Past Medical History: Cancer, Diabetes Mellitus, Eye Disorder, Hypertension Additional Past Medical History / Comment(s): hx colon cancer- chemo-last tx 08/30/21, neuropathy feet and hands-causes balance problems, "abdominal hernia", "borderline cholesterol", History of Any Multi-Drug Resistant Organisms: None Reported Past Surgical History: Bowel Resection, Cholecystectomy, Hernia Repair Additional Past Surgical History / Comment(s): bowel resection 01/2021 Past Anesthesia/Blood Transfusion Reactions: No Reported Reaction Additional Past Anesthesia/Blood Transfusion Reaction / Comment(s): no hx blood transfusion Smoking Status: Never smoker - Past Family History Father Family Medical History: Cancer Additional Family Medical History / Comment(s): prostate cancer x. colon cancer Medications and Allergies Home Medications Medication Instructions Recorded Confirmed Type Bisoprolol/Hydrochlorothiazide 1 tab PO DAILY 01/29/21 08/29/22 History [Bisoprolol/Hydrochlorothiazide 2.5-6.25 mg] Cetirizine HCl [Zyrtec] 10 mg PO DIRECTED PRN 03/19/21 08/29/22 History Atorvastatin [Lipitor] 5 mg PO HS 01/15/22 08/29/22 History metFORMIN HCL [Glucophage] 1,000 mg PO BID 08/26/22 08/29/22 History Allergies Allergy/AdvReac Type Severity Reaction Status Date / Time No Known Allergies Allergy Verified 08/29/22 07:21 Surgical - Exam Vital Signs Temp Pulse Resp BP Pulse Ox 97.4 F L 99 14 176/86 97 08/29/22 07:28 08/29/22 07:28 08/29/22 07:28 08/29/22 07:28 08/29/22 07:28 - General well developed, well nourished, no distress - Eyes PERRL - ENT normal pinna - Neck no masses - Respiratory normal expansion - Cardiovascular Rhythm: regular - Abdomen Abdomen: soft, non tender Assessment and Plan Assessment: History of colon cancer. We'll perform colonoscopy.
--- NOTE | 2022-08-29 07:57 | P.OP ---
Date of Procedure: 08/29/22 Preoperative Diagnosis: History of colon cancer Postoperative Diagnosis: Normal colonoscopy Procedure(s) Performed: Colonoscopy Anesthesia: MAC Surgeon: Mac Kohler Pathology: none sent Condition: stable Disposition: PACU Description of Procedure: The patient's placed on the endoscopy table in the lateral position. She received IV sedation. Digital rectal exam was performed. This revealed no abnormalities. The flexible scope was then placed patient anus and placed at the remaining colon. Patient through subtotal colectomy. The ileocolonic anastomosis was visualized. There is no evidence of scarring. The scope summer back the rectum this appeared normal. Scope withdrawn for patient. There is no evidence of any recurrent colon cancer.
[2022-08-29 08:04] VITALS: RESP 16
[2022-08-29 08:16] VITALS: BP 145/86; PULSE 81
== END 2022-08-29 08:35 | disposition home or self-care (01) ==
LOC: ORWHC2ENDO 06:53
PROVIDERS: ATTEND Surgery
DX: Z12.11 Encounter for screening for malignant neoplasm of colon (principal); Z85.038 Personal history of other malignant neoplasm of large intestine; Z92.21 Personal history of antineoplastic chemotherapy; Z90.49 Acquired absence of other specified parts of digestive tract; I10 Essential (primary) hypertension; E11.40 Type 2 diabetes mellitus with diabetic neuropathy, unspecified; H57.9 Unspecified disorder of eye and adnexa; Z98.890 Other specified postprocedural states; Z80.42 Family history of malignant neoplasm of prostate; Z80.0 Family history of malignant neoplasm of digestive organs; Z79.84 Long term (current) use of oral hypoglycemic drugs; Z79.899 Other long term (current) drug therapy
CPT/HCPCS: 45378; J2704

== ENCOUNTER → 2023-09-30 | Outpatient (CLI) | payer MEDICARE ==
--- NOTE | 2023-10-01 08:33 | MM ---
Reason for Exam: Screening (asymptomatic). Last mammogram was performed 1 year(s) and 1 month(s) ago. Patient History: Menarche at age 16. First Full-Term at age 25. Postmenopausal. Benign Cyst Aspiration on the left side. Benign Cyst Aspiration on the left side. 06/23/2003, Benign Ultrasound-Guided Core Biopsy on the left side. Maternal cousin had breast cancer, age 40. Risk Values: Louisa 5 year model risk: 1.6%. NCI Lifetime model risk: 6.1%. Prior Study Comparison: 09/02/2018 Bilateral Diagnostic Mammogram, [facility]. 08/16/2021 Bilateral Screening Mammogram, [facility]. 08/19/2022 Bilateral MG 3D screening mammo w/cad, [facility]. Tissue Density: The breasts are heterogeneously dense, which may obscure small masses. Findings: Analyzed By CAD. Right breast: There is no suspicious group of microcalcifications or new suspicious mass. Left breast: There is no suspicious group of microcalcifications or new suspicious mass. Overall Assessment: Negative, BI-RAD 1 Management: Screening Mammogram of both breasts in [address] [facility] will attempt to contact patient to return for supplemental views and ultrasound if indicated. Patient should continue monthly self-breast exams. A clinical breast exam by your physician is recommended on an annual basis. This exam should not preclude additional follow-up of suspicious palpable abnormalities. Note on Louisa scores and lifetime risk: 1. A Louisa score greater than 3% is considered moderate risk. If this is the case, consider specialist referral to assess eligibility for a risk reducing agent. 2. If overall lifetime risk for the development of breast cancer is 20% or higher, the patient may qualify for future screening with alternating mammogram and breast MRI. Electronically signed and approved by: Arden Ta DO
== END | disposition home or self-care (01) ==
LOC: RADMAMWWP 09:08
PROVIDERS: ATTEND Family Medicine
DX: Z12.31 Encounter for screening mammogram for malignant neoplasm of breast (principal); Z78.0 Asymptomatic menopausal state; Z80.3 Family history of malignant neoplasm of breast
CPT/HCPCS: 77063; 77067

== ENCOUNTER → 2024-10-15 | Outpatient (CLI) | payer MEDICARE ==
--- NOTE | 2024-10-15 10:35 | MM ---
Reason for Exam: Screening (asymptomatic). Last mammogram was performed 1 year(s) and 1 month(s) ago. Patient History: Menarche at age 16. First Full-Term at age 25. Postmenopausal. Benign Cyst Aspiration on the left side. Benign Cyst Aspiration on the left side. 06/23/2003, Benign Ultrasound-Guided Core Biopsy on the left side. Maternal cousin had breast cancer, age 40. Risk Values: Louisa 5 year model risk: 1.6%. NCI Lifetime model risk: 5.6%. Prior Study Comparison: 08/16/2021 Bilateral Screening Mammogram, [facility]. 08/19/2022 Bilateral MG 3D screening mammo w/cad, [facility]. 09/30/2023 Bilateral MG 3D screening mammo w/cad, [facility]. Tissue Density: There are scattered areas of fibroglandular density. Findings: Analyzed By CAD. There is linear calcification in the right breast. Benign-appearing right axillary lymph nodes are redemonstrated. There is no suspicious group of microcalcifications or new suspicious mass in either breast. Overall Assessment: Benign, BI-RAD 2 Management: Screening Mammogram of both breasts in 1 year. . Patient should continue monthly self-breast exams. A clinical breast exam by your physician is recommended on an annual basis. This exam should not preclude additional follow-up of suspicious palpable abnormalities. Note on Louisa scores and lifetime risk: 1. A Louisa score greater than 3% is considered moderate risk. If this is the case, consider specialist referral to assess eligibility for a risk reducing agent. 2. If overall lifetime risk for the development of breast cancer is 20% or higher, the patient may qualify for future screening with alternating mammogram and breast MRI. [facility], , 10/15/2024 10:32 AM. Electronically signed and approved by: Monster Montes M.D.
== END | disposition home or self-care (01) ==
LOC: RADMAMWWP 09:40
PROVIDERS: ATTEND Family Medicine
DX: Z12.31 Encounter for screening mammogram for malignant neoplasm of breast (principal); R92.323 Mammographic fibroglandular density, bilateral breasts; R92.1 Mammographic calcification found on diagnostic imaging of breast; Z78.0 Asymptomatic menopausal state; Z80.3 Family history of malignant neoplasm of breast
CPT/HCPCS: 77063; 77067